=== PATIENT | male | born 1985 | race Caucasian/White ===

== ENCOUNTER 2017-02-12 09:08 | Emergency (ER) | payer SELFPAY ==
[~2017-02-12] VITALS: Ht 185.4 cm; Wt 108.9 kg
[~2017-02-12 09:08] MED LIST: ALBU8.5H4 IH; ALBU8.5H4 PO; AMOX500C2 PO; AZIT250T PO; BENZ100C18 PO; BUDE6HFA IH; CEFU500T5 PO; CIPR-225 PO; CYCL10TA9 PO; DICY10CA26 PO; FAMO20TA5 PO; HCTZ12.5T PO; HYDR-700 PO; KETO75CA PO; LACT1CAP62 PO; META800T5 PO; MULT-963 PO; NAPR-243 PO; NAPR500T PO; NFPRILOC40 PO; OMEP20TA2 PO; PHEN-640 PO; PNT40TEC PO; PRD20T PO; PRED10TA PO; QUET50TA; RT-ALBUINH IH; SULF1TAB38 PO; TRAZ150T60 PO; TRM50T PO; VARE0.5T PO; bp med
--- OUTSIDE RECORDS SUMMARY | 2017-02-12 09:20 | XMS REPORT ---
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
--- OUTSIDE RECORDS SUMMARY | 2017-02-12 09:20 | XMS REPORT ---
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
--- OUTSIDE RECORDS SUMMARY | 2017-02-12 09:20 | XMS REPORT ---
Author Author CAREN ZARAGOZA [facility] Address [address] [place] [address] Care Team Providers Care Software Client Architect Name Role Phone CAREN ZARAGOZA Unavailable PROBLEMS Type Condition ICD9-CM Code YTM34-OS Code Onset Dates Condition Status SNOMED Code Problem Intractable migraine without aura and without status migrainosus G43.019 Active 989139188 Problem Essential hypertension I10 Active 54133927 Problem Microscopic hematuria R31.29 Active 761212344 ALLERGIES Substance Reaction Event Type Date Status Hydrocodone Failed UDS (pos for THC and opiates) Non Drug Allergy May, Active Benzodiazepines Failed UDS (pos for THC and opiates) Non Drug Allergy May Active SOCIAL HISTORY No smoking Hx information available PLAN OF CARE Activity Details Follow Up prn Reason: VITAL SIGNS Height 72 in 2016-06-08 Weight 258.8 lbs 2016-06-08 Temperature 97.6 degrees Fahrenheit 2016-06-08 Heart Rate 94 bpm 2016-06-08 Respiratory Rate 18 2016-06-08 BMI 35.10 kg/m2 2016-06-08 Blood pressure systolic 142 mmHg 2016-06-08 Blood pressure diastolic 90 mmHg 2016-06-08 MEDICATIONS Medication Instructions Dosage Frequency Start Date End Date Duration Status PredniSONE 20 mg Orally Once a day in the morning with food 1 tablet May, May, 05 days Active RESULTS No Results PROCEDURES Procedure Date Ordered Related Diagnosis Body Site Office Visit, Est Pt., Level 3 Jun 08, 2016 IMMUNIZATIONS No Known Immunizations
--- OUTSIDE RECORDS SUMMARY | 2017-02-12 09:20 | XMS REPORT ---
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 [address]-05 500 MG Orally Twice a day 1 tablet Procedures Procedure Coding System Code Date C-REACTIVE PROTEIN CPT-4 47328 May 03, 2016 Office Visit, Est Pt., Level 4 CPT-4 09760 May 03, 2016 COMPLETE CBC W/AUTO DIFF WBC CPT-4 17718 May 03, 2016 VENIPUNCT, ROUTINE* CPT-4 51721 May 03, 2016 Vital Signs Date/Time: May 03, 2016 Cardiac Monitoring Heart Rate 96 bpm Weight 263 lbs Height 72 in BMI 35.67 Index Blood Pressure Diastolic 70 mmHg Blood Pressure Systolic 150 mmHg Results Name Result Date Reference Range Unit Abnormality Flag ROUTINE VENIPUNCTURE CBC ----Neutrophils (Absolute) 8.2 [id number] 1.4-7.0 x10E3/uL H ----Basos 1 25290361 % ----Monocytes(Absolute) 0.7 [id number] 0.1-0.9 x10E3/uL ----Lymphs (Absolute) 2.0 [id number] 0.7-3.1 x10E3/uL ----Platelets 236 [id number] 150-379 x10E3/uL ----Baso (Absolute) 0.1 [id number] 0.0-0.2 x10E3/uL ----RDW 13.5 [id number] 12.3-15.4 % ----Eos (Absolute) 0.1 [id number] 0.0-0.4 x10E3/uL ----MCHC 34.6 [id number] 31.5-35.7 g/dL ----MCH 29.9 [id number] 26.6-33.0 pg ----MCV 87 24215497 79-97 fL ----Lymphs 18 50082623 % ----Neutrophils 74 74380953 % ----Eos 1 14155445 % ----Monocytes 6 24464351 % ----Immature Granulocytes 0 54322568 % ----Immature Grans (Abs) 0.0 [id number] 0.0-0.1 x10E3/uL ----WBC 11.1 [id number] 3.4-10.8 x10E3/uL H ----RBC 5.91 [id number] 4.14-5.80 x10E6/uL H ----Hemoglobin 17.7 [id number] 12.6-17.7 g/dL ----Hematocrit 51.1 [id number] 37.5-51.0 % H CRP ----C-Reactive Protein, Quant 3.5 [id number] 0.0-4.9 mg/L Summary Purpose eClinicalWorks Submission
--- OUTSIDE RECORDS SUMMARY | 2017-02-12 09:20 | XMS REPORT ---
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 Medications Medication Code System Code Instructions Start Date End Date Status Dosage Bactrim DS [facility] [address]-43 800-160 MG Orally Twice a day Feb 06, 2016 Feb 09, 2016 1 tablet Procedures Procedure Coding System Code Date Office Visit, Est Pt., Level 3 CPT-4 62068 Feb 06, 2016 URINALYSIS, AUTO, W/O SCOPE CPT-4 92588 Feb 06, 2016 Vital Signs Date/Time: Feb 06, 2016 Cardiac Monitoring Heart Rate 78 bpm Weight 270.6 lbs Height 72 in BMI 36.70 Index Blood Pressure Diastolic 92 mmHg Blood Pressure Systolic 134 mmHg Results No Known Results Summary Purpose eClinicalWorks Submission
--- OUTSIDE RECORDS SUMMARY | 2017-02-12 09:21 | XMS REPORT ---
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
--- NOTE | 2017-02-12 10:49 | Diagnostic Imaging Report ---
PROCEDURE: CT head and CT cervical spine without contrast. TECHNIQUE: Multiple contiguous axial images were obtained through the brain and cervical spine without the use of intravenous contrast. Sagittal and coronal reformations through the cervical spine were then performed. INDICATION: Hypertension, headache, neck pain. COMPARISON: 12/02/2012. CT HEAD: Ventricles are normal in size, shape and position. There is no midline shift or mass effect. There is no hemorrhage or evidence of acute ischemia. No cerebral edema identified. The bony calvarium, visualized paranasal sinuses and mastoids are normal. IMPRESSION: Negative CT head. CT CERVICAL SPINE: Alignment is normal. There is no subluxation or fracture. No osseous lesion or significant degeneration seen. Soft tissue structures are unremarkable. IMPRESSION: Negative CT of the cervical spine. Dictated by: Dictated on workstation # [id number]
--- NOTE | 2017-02-12 10:52 | ED Headache ---
General Chief Complaint: Head/Cervical Problems Stated Complaint: STIFF NECK/HEADACHE Nursing Triage Note: c/o headache/neck discomfort x 11 days. Denies fever/chills/fatigue/injury. Hx of hypertension but is not currently on meds. Nursing Sepsis Screen: No Definite Risk Source: patient History of Present Illness Time seen by provider: 10:00 Initial Comments C/O POSTERIOR HEADACHE AND POSTERIOR NECK PAIN--WORSE ON RIGHT--FOR 11 DAYS NO FEVER OR RECENT ILLNESS NO VISION CHANGES NO NAUSEA/VOMITING NO DIZZINESS NO PARESTHESIAS OR MOTOR DEFICITS HAS NOT TAKEN ANYTHING FOR PAIN TODAY, BUT HAS TAKEN TYLENOL, MOTRIN AND HYDROCODONE ( GIRLFRIEND'S RX) AT TIMES OVER THE LAST 11 DAYS, WITHOUT RELIEF NOTHING WORSENS OR IMPROVES HEADACHE. PT STATES HE WAS DX WITH HTN " A COUPLE OF YEARS AGO" AND WAS STARTED ON METOPROLOL, BUT PT SELF DC'D IT AFTER 3 DAYS, BECAUSE HE STATES IT MADE IT FEEL LIKE HE HAD FLUTTERING IN HIS CHEST AND HE FELT LIGHTHEADED--NEVER FOLLOWED UP WITH AFTER THAT AT ANY TIME PCP: DR. SIFUENTES AT [facility] Allergies and Home Medications Allergies Coded Allergies: NKANo Known Allergies (Unverified Allergy, Mild, 10/19/09) Home Medications Albuterol Sulfate 8.5 Gm Hfa.aer.ad, 1-2 PUFF IH Q4H PRN for WHEEZING, #1 Prescribed by: TOMASZ MORTON on 02/19/16 1235 Ciprofloxacin HCl 500 Mg Tablet, 500 MG PO BID, #20 Prescribed by: LÁZARO JOHNSTON on 04/28/16 2018 Phenazopyridine HCl 200 Mg Tablet, 1 TAB PO TID PRN for PAIN, #20 Prescribed by: LÁZARO JOHNSTON on 04/28/16 2019 Constitutional: no symptoms reported Eyes: No Symptoms Reported Ears, Nose, Mouth, Throat: no symptoms reported Respiratory: no symptoms reported Cardiovascular: no symptoms reported Gastrointestinal: no symptoms reported Genitourinary: no symptoms reported Musculoskeletal: see HPI, muscle pain, neck pain Skin: no symptoms reported Psychiatric/Neurological: See HPI, Headache, Denies Numbness, Denies Paresthesia, Denies Seizure, Denies Tingling, Denies Tremors, Denies Weakness Past Whgatlc-Iuveho-Phwnxt Hx Patient Social History Alcohol Use: Occasionally Uses Recreational Drug Use: Yes (THC) Drug of Choice: marijuana (occasional) Smoking Status: Current Everyday Smoker (1 PPD) Type Used: Cigarettes Recent Foreign Travel: No Contact w/Someone Who Travel: No Recent Infectious Disease Expo: No Recent Hopitalizations: No Immunizations Up To Date Tetanus Booster (TDap): Less than 5yrs Seasonal Allergies Seasonal Allergies: No Surgeries HX Surgeries: Yes (removal of "birthmarks"; HERNIA REPAIR) Surgeries: Abdominal, Appendectomy Respiratory Hx Respiratory Disorders: No Cardiovascular Hx Cardiac Disorders: Yes Cardiac Disorders: Hypertension Neurological Hx Neurological Disorders: No Reproductive System Hx Reproductive Disorders: No Genitourinary Hx Genitourinary Disorders: Yes (renal cysts, chronic hematuria) Gastrointestinal Hx Gastrointestinal Disorders: Yes Gastrointestinal Disorders: Abdominal Hernia, Liver Disease/Jaundice Musculoskeletal Hx Musculoskeletal Disorders: No Endocrine Hx Endocrine Disorders: No HEENT HX ENT Disorders: No Cancer Hx Cancer: No Psychosocial Hx Psychiatric Problems: Yes Behavioral Health Disorders: Anxiety Integumentary HX Skin/Integumentary Disorder: No Blood Transfusions Hx Blood Disorders: No Adverse Reaction to a Blood Tr: No Family Medical History Significant Family History: Heart Disease, DVT/PE, Diabetes, Hypertension Family Medial History: Patient reports no known family medical history. Physical Exam Vital Signs Vital Sign - Last 12Hours 02/12/17 09:54 Temp 98.0 Pulse 90 Resp 16 B/P (MAP) 168/111 Pulse Ox 98 O2 Delivery Room Air Capillary Refill : Less Than 3 Seconds General Appearance: WD/WN HEENT: PERRL/EOMI, normal ENT inspection, TMs normal, pharynx normal Neck: non-tender, full range of motion, supple, tender lateral (TENDERNESS AND MILD MUSCLE SPASMS TO CERVICAL PARAVERTEBRAL MUSCLES--RIGHT > LEFT--PALPATION REPRODUCES PAIN ) Cardiovascular: normal peripheral pulses, regular rate, rhythm, no murmur Respiratory: normal breath sounds, no respiratory distress, no accessory muscle use Gastrointestinal: non tender, soft Back: normal inspection, no CVA tenderness, no vertebral tenderness Extremities: normal range of motion, non-tender, normal inspection, no pedal edema, no calf tenderness, normal capillary refill Psychiatric: alert, oriented x 3 Crainal Nerves: normal hearing, normal speech, PERRL Coordination/Gait: normal gait Motor/Sensory: no motor deficit, no sensory deficit, no pronator drift Reflexes: 2+ Bicep (R), 2+ Bicep (L), 2+ Knee (R), 2+ Knee (L) Skin: normal color, warm/dry Progress/Results/Core Measures Results/Orders My Orders Orders - KYLE BERGER DO Ct Head/Cervical Spine Wo (02/12/17 10:22) Ketorolac Injection (Toradol Injection) (02/12/17 11:00) Medications Given in ED Current Medications Medications Dose Ordered Sig/Regla Route Start Time Stop Time Status Last Admin Dose Admin Ketorolac Tromethamine 60 mg ONCE ONCE IM 02/12/17 11:00 02/12/17 11:01 DC 02/12/17 11:15 60 MG Vital Signs/I&O Vital Sign - Last 12Hours 02/12/17 02/12/17 02/12/17 09:54 11:15 11:25 Temp 98.0 98.0 98.0 Pulse 90 94 Resp 16 16 B/P (MAP) 168/111 Pulse Ox 98 98 O2 Delivery Room Air Blood Pressure Mean: 130 Progress Note : Progress Note BP DOWN TO 148/98 WITHOUT TREATMENT, AND PT STATES HEADACHE IS BETTER--PRIOR TO TORADOL SHOT HEADACHE MUCH IMPROVED AT DISMISSAL Diagnostic Imaging Comments CT HEAD/CERVICAL SPINE--NO ACUTE PROCESS, PER RADIOLOGIST REPORTS @ 1052 Reviewed: Reviewed by Me Departure Impression Impression: Primary Impression: HTN (hypertension) Additional Impression: Tension headache Disposition: HOME, SELF-CARE Condition: Improved Departure-Patient Inst. [facility] Instructions: DASH Diet, Heart Healthy Diet, High Blood Pressure (DC), Tension Headache (DC) Add. Discharge Instructions: NO SMOKING, DRUGS OR ALCOHOL LOW SODIUM/ HEART HEALTHY DIET TYLENOL 1 GRAM / MOTRIN 800 MG 4 TIMES A DAY NEEDED FOR PAIN FOLLOW UP WITH [facility] THIS WEEK FOR FURTHER CARE--CALL TODAY FOR FOLLOW UP APPOINTMENT All discharge instructions reviewed with patient and/or family. Voiced understanding. KYLE BERGER DO Feb 12, 2017 10:52
[2017-02-12] MEDS ORDERED: KETOROLAC 60 MG/2 ML VIAL IM ONE (11:00)
[2017-02-12 11:25] VITALS: BP 145/96
== END 2017-02-12 11:25 | disposition home or self-care (01) ==
LOC: EDUNIT# 09:08 → ER 09:10
DX: G44.209 Tension-type headache, unspecified, not intractable (principal); I10 Essential (primary) hypertension; F41.9 Anxiety disorder, unspecified; F12.90 Cannabis use, unspecified, uncomplicated; F17.210 Nicotine dependence, cigarettes, uncomplicated; Z98.890 Other specified postprocedural states; Z90.49 Acquired absence of other specified parts of digestive tract; Z87.19 Personal history of other diseases of the digestive system; Z82.49 Family history of ischemic heart disease and other diseases of the circulatory system
CPT/HCPCS: 70450; 72125; 96372; 99284

== ENCOUNTER 2017-11-14 12:27 | Emergency (ER) | payer SELFPAY ==
[~2017-11-14] VITALS: Ht 177.8 cm; Wt 99.8 kg
[~2017-11-14 12:27] MED LIST changes: +NAPR-1071 PO; -NAPR500T PO
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
[2017-11-14] MEDS ORDERED: KETOROLAC 30 MG/ML VIAL IVP STA (12:50)
[2017-11-14] MEDS ORDERED: NS IV 1000 ML 1,000 ML IV ONE (12:50)
[2017-11-14] MEDS ORDERED: raNItidine INJECTION 50 MG in NS (IVPB) 50 ML IV ONE (13:00)
[2017-11-14] MEDS ORDERED: ONDANSETRON 4 MG/2 ML (SDV) Z0FRAN IVP ONE (13:00)
[2017-11-14 13:01] LABS: BASOPHILS # (AUTO) 0.1 10^3/uL (0.0-0.1); BASOPHILS % (AUTO) 1 % (0-10); EOSINOPHILS # (AUTO) 0.2 10^3/uL (0.0-0.3); EOSINOPHILS % (AUTO) 2 % (0-10); HEMATOCRIT 49 % (40-54); HEMOGLOBIN 17.4 G/DL (13.3-17.7); LYMPHOCYTES # (AUTO) 2.5 X 10^3 (1.0-4.0); LYMPHOCYTES % (AUTO) 23 % (12-44); MEAN CORPUSCULAR HEMOGLOBIN 29 PG (25-34); MEAN CORPUSCULAR HGB CONC 35 G/DL (32-36); MEAN CORPUSCULAR VOLUME 84 FL (80-99); MEAN PLATELET VOLUME 11.8 FL (7.4-10.4); MONOCYTES # (AUTO) 0.8 X 10^3 (0.0-1.0); MONOCYTES % (AUTO) 7 % (0-12); NEUTROPHILS # (AUTO) 7.2 X 10^3 (1.8-7.8); NEUTROPHILS % (AUTO) 67 % (42-75); PLATELET COUNT 222 10^3/uL (130-400); RED CELL DISTRIBUTION WIDTH 13.6 % (10.0-14.5); WHITE BLOOD COUNT 10.7 10^3/uL (4.3-11.0)
[2017-11-14] MEDS ORDERED: NS 250 ML (IVPB) BAG IV ONE (13:15)
[2017-11-14] MEDS ORDERED: IOHEXOL 350 MG/ML 150 ML (OMNIPAQUE 350) VIAL IV ONE (13:15)
[2017-11-14 13:19] LABS: ALANINE AMINOTRANSFERASE 55 U/L (0-55); ALBUMIN 4.7 GM/DL (3.2-4.5); ALKALINE PHOSPHATASE 72 U/L (40-136); BILIRUBIN,TOTAL 0.6 MG/DL (0.1-1.0); BUN/CREATININE RATIO 14; CALCIUM 9.8 MG/DL (8.5-10.1); CARBON DIOXIDE 24 MMOL/L (21-32); CHLORIDE 107 MMOL/L (98-107); CREATINE KINASE 97 U/L (30-200); CREATININE SERUM 0.84 MG/DL (0.60-1.30); GFR ESTIMATED > 60; GLUCOSE 102 MG/DL (70-105); MAGNESIUM 1.9 MG/DL (1.8-2.4); POTASSIUM 4.2 MMOL/L (3.6-5.0); SODIUM 141 MMOL/L (135-145); TOTAL PROTEIN 7.5 GM/DL (6.4-8.2)
[2017-11-14 13:34] LABS: BILIRUBIN,URINE NEGATIVE (NEGATIVE); CLARITY,URINE CLEAR; COLOR,URINE YELLOW; GLUCOSE, URINE (UA) NEGATIVE (NEGATIVE); KETONES,URINE NEGATIVE (NEGATIVE); LEUKOCYTE ESTERASE ,URINE NEGATIVE (NEGATIVE); NITRITE,URINE NEGATIVE (NEGATIVE); PH,URINE 7 (5-9); PROTEIN,URINE NEGATIVE (NEGATIVE); UROBILINOGEN,URINE NORMAL (NORMAL)
[2017-11-14 13:43] LABS: MYOGLOBIN SERUM 31.2 NG/ML (10.0-92.0); TSH (THYROID ANALYZER) 0.72 UIU/ML (0.35-4.94)
[2017-11-14 13:47] LABS: AMPHETAMINE SCREEN, URINE NEGATIVE (NEGATIVE); BARBITURATE SCREEN URINE NEGATIVE (NEGATIVE); BENZODIAZEPINES SCREEN URINE NEGATIVE (NEGATIVE); CANNABINOID SCREEN, URINE POSITIVE (NEGATIVE); COCAINE SCREEN URINE NEGATIVE (NEGATIVE); METHADONE STAT NEGATIVE (NEGATIVE); METHAMPHETAMINE SCREEN URINE S NEGATIVE (NEGATIVE); OPIATE SCREEN URINE NEGATIVE (NEGATIVE); OXYCODONE STAT NEGATIVE (NEGATIVE); PROPOXYPHENE STAT NEGATIVE (NEGATIVE); TRICYCLIC ANTIDEPRESSANTS SCRE NEGATIVE (NEGATIVE)
--- NOTE | 2017-11-14 13:48 | Diagnostic Imaging Report ---
PROCEDURE: CT angiography of the chest with contrast. TECHNIQUE: Multiple contiguous axial images were obtained through the chest after uneventful bolus administration of intravenous contrast. Reconstructed CTA MIP acquisitions were also performed. INDICATION: Chest and back pain, lightheadedness. FINDINGS: There are no intraluminal pulmonary arterial filling defects. There is no pulmonary arterial embolus. The thoracic aorta is patent and nonaneurysmal. There is no pleural or pericardial effusion. Early arterial enhancement of a right hepatic dome mass is unchanged measuring 5.2 x 5.1 cm with a low attenuating central scar-like focus remaining most compatible with focal nodular hyperplasia. No new liver mass; however, its caudal right lobe is outside the [id number]. The adrenals negative. The upper abdomen appeared nonacute. IMPRESSION: Negative for PE or other acute chest pathology. 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 Dictated by: Dictated on workstation # [id number]
[2017-11-14 13:49] LABS: AMORPHOUS SEDIMENT,UR RARE AMOR PHOSPHATE /LPF; BACTERIA,URINE NEGATIVE /HPF; SQUAMOUS EPITHELIAL CELL,UR RARE /HPF
--- NOTE | 2017-11-14 13:59 | ED General ---
General Chief Complaint: Chest Pain Stated Complaint: LIGHTHEADED WEAKNESS PAIN IN CHEST/BACK Nursing Triage Note: PT STATES LIGHTHEADED, CHEST PAIN AND WEAKNESS THAT STARTED LAST NIGHT. Nursing Sepsis Screen: No Definite Risk Source of Information: Patient Exam Limitations: No Limitations History of Present Illness Date Seen by Provider: November 14, 2017 Time Seen by Provider: 12:43 Initial Comments 32 yo male patient presents to the ED with c/o feeling lightheaded with SOA and a sharp pain to the anterior central chest beginning last night. States after he felt lightheaded, he felt anxious followed by the chest pain and SOA. Does report a h/o anxiety and panic attacks. Lightheadedness is worse with bending over and standing up quickly. Does feel like he has "cotton mouth", but drinks "a lot of water". Feels overall fatigued and "not well." Does report the pain radiates straight through to the back. Does have some epigastric pain and nausea. Timing/Duration: 12-24 Hours Modifying Factors: worse with Other (worse with standing quickly and bending over.) Allergies and Home Medications Allergies Coded Allergies: NKANo Known Allergies (Unverified Allergy, Mild, 10/19/09) Home Medications Albuterol Sulfate 8.5 Gm Hfa.aer.ad, 1-2 PUFF IH Q4H PRN for WHEEZING Prescribed by: TOMASZ MORTON on 02/19/16 1235 Ciprofloxacin HCl 500 Mg Tablet, 500 MG PO BID Prescribed by: LÁZARO JOHNSTON on 04/28/162017 Phenazopyridine HCl 200 Mg Tablet, 1 TAB PO TID PRN for PAIN Prescribed by: LÁZARO JOHNSTON on 04/28/16 2019 Patient Home Medication List Home Medication List Reviewed: Yes Review of Systems Constitutional: No chills, No diaphoresis, No fever; malaise, other (fatigue.) EENTM: no symptoms reported Respiratory: see HPI; No cough, No dyspnea on exertion, No orthopnea, No phlegm ; short of breath; No wheezing Cardiovascular: see HPI, chest pain; No edema; palpitations; No syncope Gastrointestinal: No abdominal pain, No constipation, No diarrhea, No heartburn , No loss of appetite, No melena; nausea; No vomiting Genitourinary: No discharge, No dysuria, No frequency, No hematuria, No pain; other (dark urine) Musculoskeletal: no symptoms reported Skin: no symptoms reported Psychiatric/Neurological: Anxiety; Denies Headache, Denies Numbness, Denies Paresthesia, Denies Seizure, Denies Tingling, Denies Weakness Hematologic/Lymphatic: No Symptoms Reported All Other Systems Reviewed Negative Unless Noted: Yes (Negative excepted noted.) Past Kcmxbzu-Saafzs-Kqksxa Hx Past Med/Social Hx: Reviewed and Corrections made Patient Social History Alcohol Use: Denies Use Recreational Drug Use: Yes (marijuana) Drug of Choice: marijuana (occasional) Smoking Status: Current Everyday Smoker Type Used: Cigarettes (1 PPD) Recent Foreign Travel: No Contact w/Someone Who Travel: No Recent Infectious Disease Expo: No Recent Hopitalizations: No Immunizations Up To Date Tetanus Booster (TDap): Less than 5yrs Seasonal Allergies Seasonal Allergies: No Past Medical History Surgeries: Yes (removal of "birthmarks") Abdominal (bilateral inguinal hernia repair as a child. tubes bilateral ears.) , Appendectomy Respiratory: No Cardiac: Yes Hypertension Neurological: No Reproductive Disorders: No Gastrointestinal: Yes Abdominal Hernia, Liver Disease/Jaundice Musculoskeletal: No Endocrine: No (FAMILY HX OF) Cancer: No Psychosocial: Yes Anxiety Integumentary: No Blood Disorders: No Adverse Reaction/Blood Tranf: No Family Medical History Reviewed Nursing Family Hx (patient reports to this examiner that he knows his mother in her 30's from a PE and does not know any other family hx due to being in foster care since he was a kid. All other PFH obtained from Past medical records in EMR.) Patient reports no known family medical history. Heart Disease, DVT/PE, Diabetes, Hypertension Physical Exam Vital Signs Vital Signs - First Documented Capillary Refill : Less Than 3 Seconds General Appearance: No Apparent Distress (NAD. Mildly anxious.), WD/WN HEENT: PERRL/EOMI, TMs Normal, Normal ENT Inspection, Pharynx Normal, Other ( dry oral mucosa noted. 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3-11.0 10^3/uL Red Blood Count 5.90 H 4.35-5.85 10^6/uL Hemoglobin 17.4 13.3-17.7 G/DL Hematocrit 49 40-54 % Mean Corpuscular Volume 84 80-99 FL Mean Corpuscular Hemoglobin 29 25-34 PG Mean Corpuscular Hemoglobin Concent 35 32-36 G/DL Red Cell Distribution Width 13.6 10.0-14.5 % Platelet Count 222 130-400 10^3/uL Mean Platelet Volume 11.8 H 7.4-10.4 FL Neutrophils (%) (Auto) 67 42-75 % Lymphocytes (%) (Auto) 23 12-44 % Monocytes (%) (Auto) 7 0-12 % Eosinophils (%) (Auto) 2 0-10 % Basophils (%) (Auto) 1 0-10 % Neutrophils # (Auto) 7.2 1.8-7.8 X 10^3 Lymphocytes # (Auto) 2.5 1.0-4.0 X 10^3 Monocytes # (Auto) 0.8 0.0-1.0 X 10^3 Eosinophils # (Auto) 0.2 0.0-0.3 10^3/uL Basophils # (Auto) 0.1 0.0-0.1 10^3/uL Prothrombin Time 13.0 12.2-14.7 SEC INR Comment 1.0 0.8-1.4 Activated Partial Thromboplast Time 31 24-35 SEC Sodium Level 141 135-145 MMOL/L Potassium Level 4.2 3.6-5.0 MMOL/L Chloride Level 107 98-107 MMOL/L Carbon Dioxide Level 24 21-32 MMOL/L Anion Gap 10 5-14 MMOL/L Blood Urea Nitrogen 12 7-18 MG/DL Creatinine 0.84 0.60-1.30 MG/DL Estimat Glomerular Filtration Rate > 60 BUN/Creatinine Ratio 14 Glucose Level 102 70-105 MG/DL Calcium Level 9.8 8.5-10.1 MG/DL Magnesium Level 1.9 1.8-2.4 MG/DL Total Bilirubin 0.6 0.1-1.0 MG/DL Aspartate Amino Transf (AST/SGOT) 22 5-34 U/L Alanine Aminotransferase (ALT/SGPT) 55 0-55 U/L Alkaline Phosphatase 72 40-136 U/L Total Creatine Kinase 97 30-200 U/L Creatine Kinase MB 1.0 <6.6 NG/ML Myoglobin 31.2 10.0-92.0 NG/ML Troponin I < 0.30 <0.30 NG/ML C-Reactive Protein High Sensitivity 0.43 0.00-0.50 MG/DL Total Protein 7.5 6.4-8.2 GM/DL Albumin 4.7 H 3.2-4.5 GM/DL TSH [place] Testing 0.72 0.35-4.94 UIU/ML Urine Color YELLOW Urine Clarity CLEAR Urine pH 7 5-9 Urine Specific [place] 1.010 L 1.016-1.022 Urine Protein NEGATIVE NEGATIVE Urine Glucose (UA) NEGATIVE NEGATIVE Urine Ketones NEGATIVE NEGATIVE Urine Nitrite NEGATIVE NEGATIVE Urine Bilirubin NEGATIVE NEGATIVE Urine Urobilinogen NORMAL NORMAL MG/DL Urine Leukocyte Esterase NEGATIVE NEGATIVE Urine RBC (Auto) 1+ H NEGATIVE Urine RBC 2-5 H /HPF Urine WBC NONE /HPF Urine Squamous Epithelial Cells RARE /HPF Urine Crystals PRESENT H /LPF Urine Amorphous Sediment RARE GUI PHOSPHATE H /LPF Urine Bacteria NEGATIVE /HPF Urine Casts NONE /LPF Urine Mucus NEGATIVE /LPF Urine Culture Indicated NO Urine Opiates Screen NEGATIVE NEGATIVE Urine Oxycodone Screen NEGATIVE NEGATIVE Urine Methadone Screen NEGATIVE NEGATIVE Urine Propoxyphene Screen NEGATIVE NEGATIVE Urine Barbiturates Screen NEGATIVE NEGATIVE Ur Tricyclic Antidepressants Screen NEGATIVE NEGATIVE Urine Phencyclidine Screen NEGATIVE NEGATIVE Urine Amphetamines Screen NEGATIVE NEGATIVE Urine Methamphetamines Screen NEGATIVE NEGATIVE Urine Benzodiazepines Screen NEGATIVE NEGATIVE Urine Cocaine Screen NEGATIVE NEGATIVE Urine Cannabinoids Screen POSITIVE H NEGATIVE My Orders Orders - VIVI CARTER Saline Lock/Iv-Start (11/14/17 12:50) Ekg Tracing (11/14/17 12:50) Monitor-Rhythm Ecg Trace Only (11/14/17 12:50) Ct Angio Chest W (11/14/17 12:50) Cbc With Automated Diff (11/14/17 12:50) Comprehensive Metabolic Panel (11/14/17 12:50) Creatine Kinase (11/14/17 12:50) Creatine Kinase Mb (11/14/17 12:50) Hs C Reactive Protein (11/14/17 12:50) Drug Screen Stat (Urine) (11/14/17 12:50) Magnesium (11/14/17 12:50) Protime With Inr (11/14/17 12:50) Partial Thromboplastin Time (11/14/17 12:50) Thyroid Analyzer (11/14/17 12:50) Troponin I (11/14/17 12:50) Ua Culture If Indicated (11/14/17 12:50) Myoglobin Serum (11/14/17 12:50) Ns Iv 1000 Ml (Sodium Chloride 0.9%) (11/14/17 12:50) Ranitidine Injection (Zantac Injection) (11/14/17 13:00) Ondansetron Injection (Zofran Injectio (11/14/17 13:00) Ketorolac Injection (Toradol Injection) (11/14/17 12:50) Iohexol Injection (Omnipaque 350 Mg/Ml 1 (11/14/17 13:15) Ns (Ivpb) (Sodium Chloride 0.9%) (11/14/17 13:15) Medications Given in ED Current Medications Medications Dose Ordered Sig/Regla Route Start Time Stop Time Status Last Admin Dose Admin Iohexol 125 ml ONCE ONCE IV 11/14/17 13:15 11/14/17 13:16 DC 11/14/17 13:13 125 ML Ondansetron HCl 4 mg ONCE ONCE IVP 11/14/17 13:00 11/14/17 13:01 DC 11/14/17 13:21 4 MG Ranitidine HCl 50 mg/Sodium Chloride 52 ml @ 100 mls/hr ONCE ONCE IV 11/14/17 13:00 11/14/17 13:31 DC 11/14/17 13:22 100 MLS/HR Sodium Chloride 250 ml ONCE ONCE IV 11/14/17 13:15 11/14/17 13:16 DC 11/14/17 13:14 80 ML Sodium Chloride 1,000 ml @ 0 mls/hr Q0M ONCE IV 11/14/17 12:50 11/14/17 12:55 DC 11/14/17 13:22 1,000 MLS/HR Vital Signs/I&O 11/14/17 11/14/17 12:40 12:40 Temp 97.5 Pulse 91 Resp 20 B/P (MAP) 160/91 (114) Pulse Ox 98 O2 Delivery Room Air Room Air Capillary Refill : Less Than 3 Seconds Blood Pressure Mean: 114 ECG Initial ECG Impression Date: November 14, 2017 Initial ECG Rhythm: S.Tach Comment Sinus tachycardia without STEMI. ECG reviewed with Dr. Machado. Diagnostic Imaging Diagonstic Imaging: CT Plain Films/CT/US/NM/MRI: chest (angio chest) Comments CT ANGIO CHEST W PROCEDURE: CT angiography of the chest with contrast. TECHNIQUE : Multiple contiguous axial images were obtained through the chest after uneventful bolus administration of intravenous contrast. Reconstructed CTA MIP acquisitions were also performed. INDICATION: Chest and back pain, lightheadedness. FINDINGS: There are no intraluminal pulmonary arterial filling defects. There is no pulmonary arterial embolus. The thoracic aorta is patent and nonaneurysmal. There is no pleural or pericardial effusion. Early arterial enhancement of a right hepatic dome mass is unchanged measuring 5.2 x 5.1 cm with a low attenuating central scar-like focus remaining most compatible with focal nodular hyperplasia. No new liver mass; however, its caudal right lobe is outside the [id number]. The adrenals negative. The upper abdomen appeared nonacute. IMPRESSION: Negative for PE or other acute chest pathology. 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 Dictated on workstation # [id number] Reviewed: Reviewed by Me (radiology report reviewed by me) Departure Communication (Admissions) All laboratory and diagnostic findings discussed with the patient. Patient reports feeling "100 percent better" after being given fluids, Zantac, and Zofran. Impression Primary Impression: Volume depletion Additional Impression: Gastritis Disposition: HOME, SELF-CARE Condition: Improved Departure-Patient Inst. Decision time for Depature: 13:55 Referrals: [facility] (PCP/Family) Primary Care Physician Patient Instructions: Dehydration, Adult (DC), Ulcer and Gastritis Diet Add. Discharge Instructions: All discharge instructions reviewed with patient and/or family. Voiced understanding. Medications as instructed. Tylenol Extra Strength over-the- counter as directed for pain or headache if needed. Avoid NSAIDs such as ibuprofen or Aleve. Avoid smoking, secondhand smoke, marijuana use, caffeine, carbonated beverages, spicy foods, fatty foods. Do not eat within 2 hours of lying down. Drink plenty of fluids. Alternate water with Powerade, Gatorade, or vitamin water. Avoid the heat for 2-3 days. Follow-up with Dr. Downs for recheck, call for an appointment time. Return to the emergency department for worsened symptoms, chest pain, shortness of air, dizziness, changes in vision, slurred speech, changes in behavior, seizure, or any other concerns. Scripts Famotidine (Pepcid) 20 Mg Tablet 20 MG PO BID, #30 TAB 0 Refills Prov: VIVI CARTER 11/14/17 Work/School Note: Work Release Form Date Seen in the Emergency Department: November 14, 2017 Return to Work: November 16, 2017 VIVI CARTER November 14, 2017 13:59
[2017-11-14] MEDS ORDERED: FAMO-119 PO (14:47)
[2017-11-14 14:52] VITALS: BP 123/79
== END 2017-11-14 14:49 | disposition home or self-care (01) ==
LOC: EDUNIT# 12:27 → ER 12:29
DX: E86.9 Volume depletion, unspecified (principal); K29.70 Gastritis, unspecified, without bleeding; F41.9 Anxiety disorder, unspecified; I10 Essential (primary) hypertension; F12.90 Cannabis use, unspecified, uncomplicated; F17.210 Nicotine dependence, cigarettes, uncomplicated; Z87.19 Personal history of other diseases of the digestive system; Z90.49 Acquired absence of other specified parts of digestive tract
CPT/HCPCS: 36415; 71275; 80053; 80306; 81000; 82550; 82553; 83735; 83874; 84443; 84484; 85025; 85610; 85730; 86141; 93005; 93041; 96361; 96365; 96375

== ENCOUNTER 2018-01-12 16:07 | Emergency (ER) | payer SELFPAY ==
[~2018-01-12] VITALS: Ht 182.9 cm; Wt 127.0 kg
[~2018-01-12 16:07] MED LIST changes: +FAMO-119 PO
--- OUTSIDE RECORDS SUMMARY | 2018-01-12 16:15 | XMS REPORT ---
Author Author DANN FLANAGAN Organization [facility] Address [address] [place] [address] Care Team Providers Care Molder [employer]ets Name Role Phone MASHA DANN Unavailable PROBLEMS Type Condition ICD9-CM Code QKC33-MN Code Onset Dates Condition Status SNOMED Code Problem Irritable bowel syndrome without diarrhea K58.9 Active 85644394 Problem Liver mass R16.0 Active 977540586 Problem Microscopic hematuria R31.29 Active 706026967 Problem Labile hypertension I10 Active 054961097 Problem Intractable migraine without aura and without status migrainosus G43.019 Active 655146924 ALLERGIES Substance Reaction Event Type Date Status Hydrocodone Failed UDS (pos for THC and opiates) Non Drug Allergy Aug, Active Benzodiazepines Failed UDS (pos for THC and opiates) Non Drug Allergy Aug Active ENCOUNTERS Encounter Location Date Diagnosis [place] [address] [address] October, Irritable bowel syndrome without diarrhea K58.9 and Plantar fasciitis of right foot M72.2 [place] [address] [place] [id number] [place] [address] Aug, [facility] [address] [place] [id number] [place] [address] Aug, Sore throat J02.9 and Viral pharyngitis J02.9 [place] [address] [address] Aug, Tonsillitis J03.90 [place] [address] [address] Jun, Influenza B J10.1 ; Fever and chills R50.9 and Liver mass R16.0 [place] [address] [place] [id number] [place] [address] May, Bilateral low back pain without sciatica, unspecified chronicity M54.5 and Labile hypertension I10 [facility] [address] [id number] 10 Apr, 2017 Dental examination Z01.20 [place] [address] [address] Sep, Sore throat J02.9 [place] [address] [address] Jun, Intractable migraine without aura and without status migrainosus G43.019 and Essential hypertension I10 [place] [address] [address] May, Acute upper respiratory infection, unspecified J06.9 [place] [address] [address] Apr, Microscopic hematuria R31.29 [place] [address] [address] 08 Apr, 2016 Pelvic pain R10.2 [place] [address] [address] 04 Apr, 2016 [facility] [address] [address] Jan, Urinary frequency R35.0 [place] [address] [address] 14 Sep, 2015 Liver mass R16.0 [place] [address] [address] 06 Sep, 2015 IV infiltration, initial encounter T80.1XXA [place] [address] [address] 04 Sep, 2015 Liver lesion K76.9 and Back pain M54.9 [facility] [id number] [place] [address] 02 Aug, 2015 Testicular pain N50.8 and Epididymal pain N50.8 [facility] [address] [facility] [id number] [place] [address] 14 Sep, 2014 [facility] [id number] [place] [address] 13 Sep, 2014 [facility] [address] [facility] [id number] [place] [address] 6898 17 Nov, 2013 [facility] [address] [facility] [id number] [place] [address] 7[address] 17 Nov, 2013 [facility] [address] [facility] [id number] [place] [address]65[address] 2735 Nov, [facility] [id number] [place] [address] Nov, [facility] [address] [address] Nov, [facility] [address] [address] Nov, [facility] [address] [address] Nov, [facility] [address] [address] 7[address] Nov, [facility] [address] [address] 0[address] Nov, [facility] [address] [facility] [id number] [address] Nov, [facility] [address] [facility] [id number] [place] [address] Nov, [facility] [address] [place] [id number] [address] 06 Nov, 2013 [facility] [address] [address] Nov, [facility] [address] [id number] [place] [address] 97[address] Nov, [facility] [place] [facility] [address] [id number] [place] [address] 52[address] Nov, [facility] [place] [facility] [address] [id number] [place] [address] 3[address] Sep, [facility] [place] [facility] [address] [id number] [place] [address]- 9637 Sep, [facility] [place] [facility] [address] [id number] [place] [address] 3119 Sep, [facility] [place] [facility] [address] [id number] [place] [address]- 3604 Sep, [facility] [address] [id number] [place] [address]- 0009 Sep, [facility] [place] [facility] [address] [id number] [place] [address]- 5773 May, [facility] [place] [facility] [address] [id number] [place] [address]- 6986 May, [facility] [place] [facility] [address] [facility] [id number] [place] [address]- 4938 May, [facility] [place] [facility] [address] [id number] [place] [address]- 8408 May, [facility] [place] [facility] [address] [id number] [place] [address]- 8[address] Apr, [facility] [place] [facility] [address] [id number] [place] [address]- 5311 Apr, [facility] [place] [facility] [address] [id number] [place] [address]- 2704 Apr, [facility] [place] [facility] [address] [id number] [place] [address]- 7510 Apr, [facility] [place] [facility] [address] [id number] [place] [address]- 9947 Mar, [facility] [place] [facility] [address] [id number] [place] [address]- 0173 Mar, [facility] [place] [facility] [address] [id number] [place] [address]- 4165 Mar, [facility] [place] [facility] [address] [id number] [place] [address]- 1051 Mar, [facility] [place] [facility] [address] [id number] [place] [address]- 9449 Jan, [facility] [place] [facility] [address] [id number] [place] [address]- 4952 Jan, [facility] [place] [facility] [address] [id number] [place] [address]- 2532 Dec, [facility] [place] [facility] [address] [id number] [place] [address]- 5868 Dec, [facility] [place] [facility] [address] [id number] [place] [address]- 7138 Dec, [facility] [place] [facility] [address] [id number] [place] [address]- 6399 Dec, [facility] [place] [facility] [address] [id number] [place] [address]- 0422 Dec, [facility] [place] [facility] [address] [id number] [place] [address]- 6028 Dec, [facility] [place] [facility] [address] [id number] [place] [address]- 8418 Nov, [facility] [place] [facility] [address] [id number] [place] [address] Nov, [facility] [place] [facility] [address] [id number] [place] [address]- 9055 Feb, [facility] [place] [facility] [address] [id number] [place] [address]- 8615 Jul, [facility] [place] [address] [facility] [id number] [place] [address] 1566 Jul, [facility] [place] [address] [place] [id number] [address]- 4[address] Jun, [facility] [place] [address]65[address] [address] Jun, [facility] [place] [address]65[address] [address]- 2505 Apr, [facility] [place] [address] [address]- 7427 Apr, [facility] [place] [address]65100[place] [address]- 9856 Apr, [facility] [place] [address]65[address] [address]- 1166 Mar, [facility] [place] [address] [place] [id number] [address]- 1657 Mar, IMMUNIZATIONS No Known Immunizations SOCIAL HISTORY Never Assessed REASON FOR VISIT sore throat started this [facility] Activity Details Follow Up prn Reason: VITAL SIGNS Height 72 in 2017-09-07 Weight 280.2 lbs 2017-09-07 Temperature 97.5 degrees Fahrenheit 2017-09-07 Heart Rate 60 bpm 2017-09-07 Respiratory Rate 20 2017-09-07 BMI 38.00 kg/m2 2017-09-07 Blood pressure systolic 130 mmHg 2017-09-07 Blood pressure diastolic 74 mmHg 2017-09-07 MEDICATIONS Medication Instructions Dosage Frequency Start Date End Date Duration Status Promethazine-Codeine 6.25-10 MG/5ML Orally every 4 hrs 1-2 tsp as needed 4h Jun, Not-Taking Ibuprofen 400 MG Orally Three times a day 1 tablet 8h Active RESULTS No Results PROCEDURES Procedure Date Ordered Result Body Site STREP A ASSAY W/OPTIC September 07, 2017 CULTURE, BACTERIA, OTHER September 07, 2017 INSTRUCTIONS MEDICATIONS ADMINISTERED No Known Medications MEDICAL (GENERAL) HISTORY Type Description Date Medical History Hypertension Medical History IBS Medical History Lactose Intolerant Surgical History Tubes in Ears Surgical History Testicular Hernias x2 Surgical History Appendectomy Surgical History Juan Removal Hospitalization History surgeries Hospitalization [facility] 04/28/16
--- OUTSIDE RECORDS SUMMARY | 2018-01-12 16:15 | XMS REPORT ---
Author Author MICHAEL SIFUENTES Organization [facility] Address [address] [place] [address] Care Team Providers Care Security Consultant Name Role Phone MICHAEL SIFUENTES Unavailable PROBLEMS Type Condition ICD9-CM Code TJB92-OU Code Onset Dates Condition Status SNOMED Code Problem Irritable bowel syndrome without diarrhea K58.9 Active 78959559 Problem Liver mass R16.0 Active 000926863 Problem Microscopic hematuria R31.29 Active 214896576 Problem Labile hypertension I10 Active 936077341 Problem Intractable migraine without aura and without status migrainosus G43.019 Active 091199711 ALLERGIES Substance Reaction Event Type Date Status Hydrocodone Failed UDS (pos for THC and opiates) Non Drug Allergy Aug, Active Benzodiazepines Failed UDS (pos for THC and opiates) Non Drug Allergy Aug Active ENCOUNTERS Encounter Location Date Diagnosis [place] [id number] [address] October, Irritable bowel syndrome without diarrhea K58.9 and Plantar fasciitis of right foot M72.2 [place] [address] [address] Aug, [facility] [address] [place] [id number] [place] [address] Aug, Sore throat J02.9 and Viral pharyngitis J02.9 [place] [address] [address]- [address]887 Aug, Tonsillitis J03.90 [place] [address] [address] Jun, Influenza B J10.1 ; Fever and chills R50.9 and Liver mass R16.0 [facility] [address] [place] [id number] [place] [address]- 6361 May, Bilateral low back pain without sciatica, unspecified chronicity M54.5 and Labile hypertension I10 [facility] [address] [place] [id number] [place] [id number] 10 Apr, 2017 Dental examination Z01.20 [place] [address] [address] Sep, Sore throat J02.9 [place] [address] [address]- 3046 Jun, Intractable migraine without aura and without status migrainosus G43.019 and Essential hypertension I10 [place] [address] [address]- 6996 14 May, 2016 Acute upper respiratory infection, unspecified J06.9 [place] [address] [address]- 7084 Apr, Microscopic hematuria R31.29 [place] [address] [address]- 7956 08 Apr, 2016 Pelvic pain R10.2 [place] [address] [address]- 6697 04 Apr, 2016 [facility] [address] [place] [id number] [place] [address] Jan, Urinary frequency R35.0 [place] [address] [address]- 7381 14 Sep, 2015 Liver mass R16.0 [place] [address] [address]- 7871 06 Sep, 2015 IV infiltration, initial encounter T80.1XXA [place] [address] [address]- 0839 04 Sep, 2015 Liver lesion K76.9 and Back pain M54.9 [facility] [address] [place] [id number] [address] 02 Aug, 2015 Testicular pain N50.8 and Epididymal pain N50.8 [facility] [address], [place] [address]- [address] 14 Sep, 2014 [facility] [address] [facility] [id number], [place] [address]- 3[address] 13 Sep, 2014 [facility] [address] [facility] [facility] [id number] [place] [address] 795[address]- 4626 17 Nov, 2013 [facility] [address] [facility] [facility] [id number], [place] [address]- 4591 17 Nov, 2013 [facility] [id number] [place] [address]03- 6210 Nov, [facility] [id number] [place] [address] 00828- 2245 Nov, [facility] [id number] [place] [address] 13469- 9732 Nov, [facility] [address] [address]- 0503 Nov, [facility] [address] [address]- 9296 Nov, [facility] [address], [place] [address]- 1035 Nov, [facility] [address] [address]- 7032 10 Nov, 2013 [facility] [place] [facility] [address] [facility] [facility] [id number], [place] [address]- 3717 Nov, [facility] [place] [facility] [address] [facility] [facility] [id number][place] [address]- 2015 09 Nov, 2013 [facility] [place] [facility] [address] [place] [id number] [address]- 8[address] 06 Nov, 2013 [facility] [place] [facility] [address], [place] [address]- 8978 Nov, [facility] [place] [facility] [address] [id number] [place] [address]- 2227 Nov, [facility] [place] [facility] [address] [id number] [place] [address]- 8823 Nov, [facility] [place] [facility] [address] [facility] [facility] [id number] [place] [address]- 7019 Sep, [facility] [place] [facility] [address] [id number] [place] [address]- 9205 Sep, [facility] [place] [facility] [address] [id number] [place] [address]- 5427 Sep, [facility] [place] [facility] [address] [id number] [place] [address]- 7543 Sep, [facility] [place] [facility] [address] [facility] [id number] [place] [address]- 8683 Sep, [facility] [place] [facility] [address] [id number] [place] [address]- 2601 May, [facility] [place] [facility] [address] [facility] [facility] [id number] [place] [address]- 9830 May, [facility] [place] [facility] [address] [facility] [facility] [id number] [place] [address]- 3060 May, [facility] [place] [facility] [address] [facility] [facility] [id number] [address]- 4462 May, [facility] [place] [facility] [address] [id number], [place] [address]- 8053 Apr, [facility] [place] [facility] [address] [id number] [place] [address]- 4752 Apr, [facility] [place] [facility] [address] [facility] [id number] [place] [address]- 2375 Apr, [facility] [place] [facility] [address] [facility] [id number] [place] [address]- 2164 Apr, [facility] [place] [facility] [address] [id number] [place] [address]- 7652 Mar, [facility] [place] [facility] [address] [id number] [place] [address]- 1939 Mar, [facility] [place] [facility] [address] [id number] [place] [address]- 7830 Mar, [facility] [place] [facility] [address] [id number] [place] [address]- 2190 Mar, [facility] [place] [facility] [address] [id number] [place] [address]- 9988 Jan, [facility] [place] [facility] [address] [id number] [place] [address]- 8190 Jan, [facility] [place] [facility] [address] [id number] [place] [address]- 3033 Dec, [facility] [place] [facility] [address] [id number] [place] [address]- 4897 Dec, [facility] [place] [facility] [address] [id number] [place] [address]- 1121 Dec, [facility] [place] [facility] [address] [id number] [place] [address]- 4070 Dec, [facility] [place] [facility] [address] [id number] [place] [address]- 4075 Dec, [facility] [place] [facility] [address] [id number] [place] [address]- 7994 Dec, [facility] [place] [facility] [address] [id number] [place] [address]- 1891 Nov, [facility] [place] [facility] [address] [id number] [place] [address]- 0960 Nov, [facility] [place] [facility] [address] [id number] [place] [address]- 5774 Feb, [facility] [place] [facility] [address] [id number] [place] [address]- 0842 Jul, [facility] [address] [place] [address] [id number] [address]- 2546 Jul, [facility] [address], [place] [address]- 2546 Jun, [facility] [address] [place] [address] [id number] [address] 2546 Jun, [facility] [address] [address]- 2546 Apr, [facility] [address]100[place], [place] [address]- 2546 Apr, [facility] [address], [place] [address]- 2546 Apr, [facility] [address], [place] [address] 2546 Mar, [facility] [address] [address] [id number], [place] [address] 2546 Mar, IMMUNIZATIONS No Known Immunizations SOCIAL HISTORY Never Assessed REASON FOR VISIT Sore throat/Fever, symptoms started yesterday with lower back pain-Whit HERNANDEZ PLAN OF CARE Activity Details Follow Up prn Reason: VITAL SIGNS Height 72 in 2017-08-28 Weight 274.8 lbs 2017-08-28 Temperature 98.8 degrees Fahrenheit 2017-08-28 Heart Rate 84 bpm 2017-08-28 Respiratory Rate 20 2017-08-28 BMI 37.27 kg/m2 2017-08-28 Blood pressure systolic 146 mmHg 2017-08-28 Blood pressure diastolic 86 mmHg 2017-08-28 MEDICATIONS Medication Instructions Dosage Frequency Start Date End Date Duration Status Ibuprofen 400 MG Orally Three times a day 1 tablet 8h Active Amoxicillin 500 mg Orally 3 times a day 1 capsule 8h Aug, Aug, 07 days Active Promethazine-Codeine 6.25-10 MG/5ML Orally every 4 hrs 1-2 tsp as needed 4h Jun, Not-Taking RESULTS No Results PROCEDURES No Known procedures INSTRUCTIONS MEDICATIONS ADMINISTERED No Known Medications MEDICAL (GENERAL) HISTORY Type Description Date Medical History Hypertension Medical History IBS Medical History Lactose Intolerant Surgical History Tubes in Ears Surgical History Testicular Hernias x2 Surgical History Appendectomy Surgical History Juan Removal Hospitalization History surgeries Hospitalization History [facility] 04/28/16
--- OUTSIDE RECORDS SUMMARY | 2018-01-12 16:15 | XMS REPORT ---
Author Author DANN FLANAGAN Organization [facility] Address [address] [place] [address] Care Team Providers Care Research Instructor Name Role Phone DANN FLANAGAN Unavailable PROBLEMS Type Condition ICD9-CM Code [id number] Code Onset Dates Condition Status SNOMED Code Problem Irritable bowel syndrome without diarrhea K58.9 Active 28344200 Problem Liver mass R16.0 Active 132889536 Problem Microscopic hematuria R31.29 Active 458380945 Problem Labile hypertension I10 Active 818962580 Problem Intractable migraine without aura and without status migrainosus G43.019 Active 708434204 ALLERGIES No Information ENCOUNTERS Encounter Location Date Diagnosis [place] [address] [address] October, Irritable bowel syndrome without diarrhea K58.9 and Plantar fasciitis of right foot M72.2 [place] [address] [address] Aug, [facility] [address] [place] [id number] [place] [address] Aug, Sore throat J02.9 and Viral pharyngitis J02.9 [place] [address] [place] [id number] [place] [address] Aug, Tonsillitis J03.90 [place] [address] [address] Jun, Influenza B J10.1 ; Fever and chills R50.9 and Liver mass R16.0 [place] [address] [id number] [place] [address] May, Bilateral low back pain without sciatica, unspecified chronicity M54.5 and Labile hypertension I10 [facility] [address] [place] [address] [id number] [place] [address] [id number] 10 Apr, 2017 Dental examination Z01.20 [place] [address] [address] 26 Sep, 2016 Sore throat J02.9 [place] [address] [address] Jun, Intractable migraine without aura and without status migrainosus G43.019 and Essential hypertension I10 [place] [address] [address] 89[address] 14 May, 2016 Acute upper respiratory infection, unspecified J06.9 [place] [address] [address] 8080 11 Apr, 2016 Microscopic hematuria R31.29 [place] [address] [address] 59[address] 08 Apr, 2016 Pelvic pain R10.2 [place] [address] [address]- [address] 04 Apr, [address] [facility] [address] [address] 13 Jan, 2016 Urinary frequency R35.0 [place] [address] 25[address]- 8548 14 Sep, 2015 Liver mass R16.0 [place] [address] 18[address]- 3452 06 Sep, 2015 IV infiltration, initial encounter T80.1XXA [place] [address] 0[address]56- 7[address] 04 Sep, 2015 Liver lesion K76.9 and Back pain M54.9 [facility] [address] [address] 02 Aug, 2015 Testicular pain N50.8 and Epididymal pain N50.8 [place] [address] [place] [address] 14 Sep, 2014 [facility] [place] [facility] [address] [id number] [place] [address] 17[address] 13 Sep, 2014 [facility] [place] [facility] [address] [id number] [place] [address] 3628 17 Nov, 2013 [facility] [place] [facility] [address] [id number] [place] [address] 6686 17 Nov, 2013 [facility] [place] [facility] [address] [id number] [place] [address] 48[address] 13 Nov, 2013 [facility] [place] [facility] [address] [id number] [place] [address] 9779 13 Nov, 2013 [facility] [place] [facility] [address] [id number] [place] [address] 8271 Nov, [facility] [place] [facility] [address] [id number] [place] [address] 0659 Nov, [facility] [place] [facility] [address] [id number] [place] [address] 7[address] Nov, [facility] [place] [facility] [address] [id number] [place] [address] 52[address] Nov, [facility] [place] [facility] [address] [id number] [place] [address] 0768 10 Nov, 2013 [facility] [place] [facility] [address] [id number] [place] [address] 9259 Nov, [facility] [place] [facility] [address] [id number] [place] [address] 2659 Nov, [facility] [place] [facility] [address] [id number] [place] [address]- 4742 Nov, [facility] [place] [facility] [address] [id number] [place] [address]- 2004 06 Nov, 2013 [facility] [place] [facility] [address] [id number] [place] [address]- 3271 Nov, [facility] [place] [facility] [address] [id number] [place] [address]- 0736 Nov, [facility] [place] [facility] [address] [id number] [place] [address] 6320 Sep, [facility] [place] [facility] [address] [id number] [place] [address] 5373 Sep, [facility] [place] [facility] [address] [id number] [place] [address]- 8658 Sep, [facility] [place] [facility] [address] [id number] [place] [address] 5893 Sep, [facility] [place] [facility] [address] [id number] [place] [address]- 0804 Sep, [facility] [place] [facility] [address] [id number] [place] [address]- 4991 May, [facility] [place] [facility] [address] [id number], [place] [address] 8[address] May, [facility] [place] [facility] [address] [id number] [place] [address]- 9203 May, [facility] [place] [facility] [address] [facility] [id number], [place] [address] 53[address] May, [facility] [place] [facility] [address] [id number], [place] [address]- 4808 Apr, [facility] [place] [facility] [address] [id number], [place] [address]- 9681 Apr, [facility] [place] [facility] [address] [id number], [place] [address]- 6108 Apr, [facility] [place] [facility] [address] [id number], [place] [address]- 4400 Apr, [facility] [place] [facility] [address] [id number], [place] [address] 9608 Mar, [facility] [place] [facility] [address] [id number], [place] [address] 0133 Mar, [facility] [address] [id number] [place] [address]- 3787 Mar, [facility] [place] [facility] [address] [id number] [place] [address]- 2693 Mar, [facility] [address] [id number] [place] [address]- 6578 Jan, [facility] [place] [facility] [address] [id number] [place] [address]- 2344 Jan, [facility] [address] [id number] [place] [address]- 7051 Dec, [facility] [place] [facility] [address] [id number] [place] [address]- 7418 Dec, [facility] [address] [id number] [place] [address]- 3193 Dec, [facility] [place] [facility] [address] [id number] [place] [address]- 2127 Dec, [facility] [address] [id number] [place] [address]- 4225 Dec, [facility] [address] [facility] [id number] [place] [address]- 6585 Dec, [facility] [address] [id number] [place] [address]- 3002 Nov, [facility] [place] [facility] [address] [id number], [place] [address] 8138 Nov, [facility] [place] [facility] [address] [id number] [place] [address]- 4064 Feb, [facility] [place] [facility] [address] [id number] [place] [address]- 6501 Jul, [facility] [place] [facility] [address] [facility] [id number], [place] [address]- 6041 Jul, [facility] [place] [facility] [address] [place] [id number] [address]- 1466 Jun, [facility] [address]65[address] [address]- 3213 Jun, [facility] [address]00565[address] [address]- 1800 Apr, [facility] [address]00565[address], [place] [address]- 1834 Apr, [facility] [address]00565[address] [address]- 0723 Apr, [facility] [address]65[address], [place] [address]- 4447 Mar, [facility] [address]65[address], [place] [address]- 5968 Mar, IMMUNIZATIONS No Known Immunizations SOCIAL HISTORY Never Assessed REASON FOR VISIT per lab results PLAN OF CARE VITAL SIGNS MEDICATIONS Medication Instructions Dosage Frequency Start Date End Date Duration Status Keflex 500 mg Orally every 12 hrs 1 capsule 12h Aug, Aug, 10 day(s) Active RESULTS No Results PROCEDURES No Known procedures INSTRUCTIONS MEDICATIONS ADMINISTERED No Known Medications MEDICAL (GENERAL) HISTORY Type Description Date Medical History Hypertension Medical History IBS Medical History Lactose Intolerant Surgical History Tubes in Ears Surgical History Testicular Hernias x2 Surgical History Appendectomy Surgical History Juan Removal Hospitalization History surgeries Hospitalization History ER for lower abdominal pain 04/28/16
--- OUTSIDE RECORDS SUMMARY | 2018-01-12 16:16 | XMS REPORT ---
Author Author MICHAEL SIFUENTES Organization [facility] Address [address] [place] [address] Care Team Providers Care Welding Rod Coater Name Role Phone MICHAEL SIFUENTES Unavailable PROBLEMS Type Condition ICD9-CM Code [id number] Code Onset Dates Condition Status SNOMED Code Problem Irritable bowel syndrome without diarrhea K58.9 Active 68465750 Problem Liver mass R16.0 Active 784311787 Problem Microscopic hematuria R31.29 Active 269211404 Problem Labile hypertension I10 Active 575001573 Problem Intractable migraine without aura and without status migrainosus G43.019 Active 280623057 ALLERGIES Substance Reaction Event Type Date Status Hydrocodone Failed UDS (pos for THC and opiates) Non Drug Allergy Jun, Active Benzodiazepines Failed UDS (pos for THC and opiates) Non Drug Allergy Jun Active ENCOUNTERS Encounter Location Date Diagnosis [place] [id number] [address] October, Irritable bowel syndrome without diarrhea K58.9 and Plantar fasciitis of right foot M72.[address] [address] Aug, [facility] [address] [place] [id number] [place] [address]99 Aug, Sore throat J02.9 and Viral pharyngitis J02.[address] [address]- 77[address] 05 Aug, 2017 Tonsillitis J03.[address] [address]- 2451 Jun, Influenza B J10.1 ; Fever and chills R50.9 and Liver mass R16.0 [facility] [address] [place] [id number] [place] [address] 75602- 6793 May, Bilateral low back pain without sciatica, unspecified chronicity M54.5 and Labile hypertension I10 [facility] [address] [place] [id number] [place] [address] [id number] 10 Apr, 2017 Dental examination Z01.20 [place] [address] [address]- [address] Sep, Sore throat J02.9 [place] [address] [address]- 8531 Jun, Intractable migraine without aura and without status migrainosus G43.019 and Essential hypertension I10 [place] [address] [address]- 7407 14 May, 2016 Acute upper respiratory infection, unspecified J06.9 [place] [address] [address]- 6392 Apr, Microscopic hematuria R31.29 [place] [address] [address]- 4925 08 Apr, 2016 Pelvic pain R10.2 [place] [address] [address]- 8566 04 Apr, 2016 [facility] [address] [place] [id number] [place] [address]608 Jan, Urinary frequency R35.0 [place] [address] 39869- 9802 14 Sep, 2015 Liver mass R16.0 [place] [address] [address]25- 2543 06 Sep, 2015 IV infiltration, initial encounter T80.1XXA [place] [address] 08344- 3786 04 Sep, 2015 Liver lesion K76.9 and Back pain M54.9 [facility] [address] [place] [address] 02 Aug, 2015 Testicular pain N50.8 and Epididymal pain N50.8 [facility] [address], [place] [address]- 4186 14 Sep, 2014 [facility] [address] [facility] [id number], [place] [address]- 4331 13 Sep, 2014 [facility] [address] [facility] [id number] [place] [address] 68468- 4025 17 Nov, 2013 [facility] [address] [facility] [id number], [place] [address]- 2411 17 Nov, 2013 [facility] [address] [place] [address] 24779- 6901 Nov, [facility] [address] [place] [address] 82602- 1786 Nov, [facility] [address] [place] [address] 61082- 5264 Nov, [facility] [address]65[address], [place] [address]- 8792 Nov, [facility] [address], [place] [address]- 8206 Nov, [facility] [address]65[address], [place] [address]- 6212 Nov, [facility] [address]00565[address], [place] [address]- 6813 10 Nov, 2013 [facility] [place] [facility] [address] [facility] [id number], [place] [address]- 6772 Nov, [facility] [place] [facility] [address] [facility] [id number], [place] [address]- 6427 09 Nov, 2013 [facility] [place] [facility] [address] [place] [id number], [place] [address]- 7456 06 Nov, 2013 [facility] [place] [facility] [address]65[address], [place] [address]- 5831 Nov, [facility] [place] [facility] [address] [id number] [place] [address]- 1411 Nov, [facility] [place] [facility] [address] [id number] [place] [address]- 4783 Nov, [facility] [place] [facility] [address] [facility] [id number] [place] [address]- 9039 Sep, [facility] [place] [facility] [address] [id number] [place] [address]- 2223 Sep, [facility] [place] [facility] [address] [id number] [place] [address]- 1691 Sep, [facility] [place] [facility] [address] [id number] [place] [address]- 7574 Sep, [facility] [place] [facility] [address] [facility] [id number] [place] [address]- 4635 Sep, [facility] [place] [facility] [address] [id number] [place] [address]- 3297 May, [facility] [place] [facility] [address] [facility] [id number] [place] [address]- 7807 May, [facility] [place] [facility] [address] [facility] [id number] [place] [address]- 5996 May, [facility] [place] [facility] [address] [facility] [id number], [place] [address]- 5643 May, [facility] [place] [facility] [address] [id number], [place] [address]- 1888 Apr, [facility] [place] [facility] [address] [id number] [place] [address]- 9227 Apr, [facility] [place] [facility] [address] [facility] [id number] [place] [address]- 9241 Apr, [facility] [place] [facility] [address] [facility] [id number] [place] [address]- 6464 Apr, [facility] [place] [facility] [address] [id number] [place] [address]- 9694 Mar, [facility] [place] [facility] [address] [id number] [place] [address]- 9034 Mar, [facility] [place] [facility] [address] [id number] [place] [address]- 8876 Mar, [facility] [place] [facility] [address] [id number] [place] [address]- 4886 Mar, [facility] [place] [facility] [address] [id number] [place] [address]- 4188 Jan, [facility] [place] [facility] [address] [id number] [place] [address]- 8531 Jan, [facility] [place] [facility] [address] [id number] [place] [address]- 8990 Dec, [facility] [place] [facility] [address] [id number] [place] [address]- 6391 Dec, [facility] [place] [facility] [address] [id number] [place] [address]- 3846 Dec, [facility] [place] [facility] [address] [id number] [place] [address]- 5109 Dec, [facility] [place] [facility] [address] [id number] [place] [address]- 7914 Dec, [facility] [place] [facility] [address] [id number] [place] [address]- 1484 Dec, [facility] [place] [facility] [address] [id number] [place] [address]- 2919 Nov, [facility] [place] [facility] [address] [id number] [place] [address]- 4192 Nov, [facility] [place] [facility] [address] [id number] [place] [address]- 2305 Feb, [facility] [place] [facility] [address] [id number] [place] [address]- 0640 Jul, [facility] [address] [facility] [id number], [place] [address]- 2546 Jul, [facility] [address] [place] [id number], [place] [address] 2546 Jun, [facility] [address] [place] [id number], [place] [address] 2546 Jun, [facility] [address], [place] [address]- 2546 Apr, [facility] [address], [place] [address]- 2546 Apr, [facility] [address], [place] [address]- 2546 Apr, [facility] [address], [place] [address]- 9356 Mar, [facility] [address] [place] [address] [id number], [place] [address] 2546 Mar, IMMUNIZATIONS No Known Immunizations SOCIAL HISTORY Never Assessed REASON FOR VISIT Fever since Monday, T max 102----DBennettRN, dry cough, congestion PLAN OF CARE Activity Details Follow Up prn Reason: VITAL SIGNS Height 72 in 2017-07-03 Weight 270 lbs 2017-07-03 Temperature 99.3 degrees Fahrenheit 2017-07-03 Heart Rate 110 bpm 2017-07-03 Respiratory Rate 20 2017-07-03 BMI 36.61 kg/m2 2017-07-03 Blood pressure systolic 140 mmHg 2017-07-03 Blood pressure diastolic 70 mmHg 2017-07-03 MEDICATIONS Medication Instructions Dosage Frequency Start Date End Date Duration Status Ibuprofen 400 MG Orally Three times a day 1 tablet 8h Active Promethazine-Codeine 6.25-10 MG/5ML Orally every 4 hrs 1-2 tsp as needed 4h Jun, Active RESULTS Name Result Date Reference Range INFLUENZA A & B (IN HOUSE) 2017-07-03 INFLUENZA A negative INFLUENZA B positive Control + Lot # [id number] Exp date 05/21/19 PROCEDURES Procedure Date Ordered Result Body Site INFLUENZA ASSAY W/OPTIC Jul 03, 2017 INSTRUCTIONS MEDICATIONS ADMINISTERED No Known Medications MEDICAL (GENERAL) HISTORY Type Description Date Medical History Hypertension Medical History IBS Medical History Lactose Intolerant Surgical History Tubes in Ears Surgical History Testicular Hernias x2 Surgical History Appendectomy Surgical History Juan Removal Hospitalization History surgeries Hospitalization History [facility] 04/28/16
--- OUTSIDE RECORDS SUMMARY | 2018-01-12 16:16 | XMS REPORT ---
Author Author MICHAEL SIFUENTES Organization [facility] Address [address] [place] [address] Care Team Providers Care Healthcare Marketer Name Role Phone MICHAEL SIFUENTES Unavailable PROBLEMS Type Condition ICD9-CM Code QIV55-YD Code Onset Dates Condition Status SNOMED Code Problem Irritable bowel syndrome without diarrhea K58.9 Active 55297446 Problem Liver mass R16.0 Active 609561650 Problem Microscopic hematuria R31.29 Active 235709565 Problem Labile hypertension I10 Active 857581102 Problem Intractable migraine without aura and without status migrainosus G43.019 Active 587615502 ALLERGIES Substance Reaction Event Type Date Status Hydrocodone Failed UDS (pos for THC and opiates) Non Drug Allergy May, Active Benzodiazepines Failed UDS (pos for THC and opiates) Non Drug Allergy May Active ENCOUNTERS Encounter Location Date Diagnosis [place] [id number] [address] October, Irritable bowel syndrome without diarrhea K58.9 and Plantar fasciitis of right foot M72.[address] [address] Aug, [facility] [address] [place] [id number] [place] [address] Aug, Sore throat J02.9 and Viral pharyngitis J02.[address] [address] 05 Aug, 2017 Tonsillitis J03.[address] [address] Jun, Influenza B J10.1 ; Fever and chills R50.9 and Liver mass R16.0 [facility] [address] [place] [id number] [place] [address] May, Bilateral low back pain without sciatica, unspecified chronicity M54.5 and Labile hypertension I10 [facility] [address] [place] [id number] [place] [id number] 10 Apr, 2017 Dental examination Z01.20 [place] [address] [address] Sep, Sore throat J02.9 [place] [address] [address] Jun, Intractable migraine without aura and without status migrainosus G43.019 and Essential hypertension I10 [place] [address] [address] 14 May, 2016 Acute upper respiratory infection, unspecified J06.9 [place] [address] [address] Apr, Microscopic hematuria R31.29 [place] [address] [address] 08 Apr, 2016 Pelvic pain R10.2 [place] [address] [address] 04 Apr, 2016 [facility] [address] [place] [id number] [place] [address] Jan, Urinary frequency R35.0 [place] [address] [address] 14 Sep, 2015 Liver mass R16.0 [place] [address] [address] 06 Sep, 2015 IV infiltration, initial encounter T80.1XXA [place] [address] [address] 04 Sep, 2015 Liver lesion K76.9 and Back pain M54.9 [facility] [address] [place] [address] [id number] [address] 02 Aug, 2015 Testicular pain N50.8 and Epididymal pain N50.8 [facility] [address] [address] 14 Sep, 2014 [facility] [address] [facility] [id number] [address] 13 Sep, 2014 [facility] [address] [facility] [id number] [place] [address] 17 Nov, 2013 [facility] [address] [facility] [id number] [address] 17 Nov, 2013 [facility] [id number] [place] [address] Nov, [facility] [id number] [place] [address] Nov, [facility] [id number] [place] [address] Nov, [facility] [id number] [address] Nov, [facility] [id number] [address] Nov, [facility] [id number] [address] Nov, [facility] [id number] [address] 10 Nov, 2013 [facility] [place] [facility] [address] [facility] [id number] [address] Nov, [facility] [place] [facility] [address] [facility] [id number] [address] 09 Nov, 2013 [facility] [place] [facility] [address] [id number] [address] 06 Nov, 2013 [facility] [place] [facility] [address] [address] Nov, [facility] [place] [facility] [address] [id number] [place] [address] Nov, [facility] [place] [facility] [address] [id number] [place] [address] Nov, [facility] [place] [facility] [address] [facility] [id number] [place] [address] Sep, [facility] [place] [facility] [address] [id number] [place] [address] Sep, [facility] [place] [facility] [address] [id number] [place] [address] Sep, [facility] [place] [facility] [address] [id number] [place] [address] Sep, [facility] [place] [facility] [address] [facility] [id number] [place] [address] Sep, [facility] [place] [facility] [address] [id number] [place] [address] May, [facility] [place] [facility] [address] [facility] [id number] [place] [address] May, [facility] [place] [facility] [address] [facility] [id number] [place] [address] May, [facility] [place] [facility] [address] [facility] [id number] [address] May, [facility] [place] [facility] [address] [id number] [address] Apr, [facility] [place] [facility] [address] [id number] [place] [address] Apr, [facility] [place] [facility] [address] [facility] [id number] [place] [address]- [address] Apr, [facility] [place] [facility] [address] [facility] [id number] [place] [address] Apr, [facility] [place] [facility] [address] [id number] [place] [address] Mar, [facility] [place] [facility] [address] [id number] [place] [address]- [address] Mar, [facility] [place] [facility] [address] [id number] [place] [address]- [address] Mar, [facility] [place] [facility] [address] [id number] [place] [address]- [address] Mar, [facility] [place] [facility] [address] [id number] [place] [address] Jan, [facility] [place] [facility] [address] [id number] [place] [address]- [address] Jan, [facility] [place] [facility] [address] [id number] [place] [address]- [address] Dec, [facility] [place] [facility] [address] [id number] [place] [address]- [address] Dec, [facility] [place] [facility] [address] [id number] [place] [address]- [address] Dec, [facility] [place] [facility] [address] [id number] [place] [address]- [address] Dec, [facility] [place] [facility] [address] [id number] [place] [address] Dec, [facility] [place] [facility] [address] [id number] [place] [address]- [address] Dec, [facility] [place] [facility] [address] [id number] [place] [address]- [address] Nov, [facility] [place] [facility] [address] [id number] [place] [address]- [address] Nov, [facility] [place] [facility] [address] [id number] [place] [address]- [address] Feb, [facility] [place] [facility] [address] [id number] [place] [address]- [address] Jul, [facility] [address] [place] [id number] [address] Jul, [facility] [address] [place] [id number] [address] Jun, [facility] [address] [id number] [address] Jun, [facility] [address] [address] Apr, [facility] [address] [address] Apr, [facility] [address] [address]- [address] Apr, [facility] [address] [address] Mar, [facility] [address] [id number] [address] Mar, IMMUNIZATIONS No Known Immunizations SOCIAL HISTORY Never Assessed REASON FOR VISIT lower back pain with knot, PT feels like the back pain is no longer a problem but does have concerns about blood pressure-Whit HERNANDEZ PLAN OF CARE Activity Details Follow Up 1 Year Reason: VITAL SIGNS Height 72 in 2017-06-23 Weight 270.0 lbs 2017-06-23 Temperature 98.9 degrees Fahrenheit 2017-06-23 Heart Rate 76 bpm 2017-06-23 Respiratory Rate 18 2017-06-23 BMI 36.61 kg/m2 2017-06-23 Blood pressure systolic 138 mmHg 2017-06-23 Blood pressure diastolic 76 mmHg 2017-06-23 MEDICATIONS Medication Instructions Dosage Frequency Start Date End Date Duration Status Ibuprofen 400 MG Orally Three times a day 1 tablet 8h Not-Taking RESULTS No Results PROCEDURES No Known [...]
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
--- NOTE | 2018-01-12 17:51 | ED Back Pain ---
General Chief Complaint: Back Problems Stated Complaint: MASS ON SPINE Nursing Triage Note: PT PRESENTS TO ER WITH COMPLAINT OF MASS ON SPINE. STATES HE SAW HIS PCP ABOUT A MONTH AGO, AND WAS TOLD IT WAS PROBABLY A FATTY TUMOR. INSTRUCTED TO GET MASS RECHECKED IF IT BECAME PAINFUL. PT STATES THAT THE MASS IS NOW PAINFUL. HIS LEGS FEEL "TIGHT AND CRAMPY". Nursing Sepsis Screen: No Definite Risk History of Present Illness Date Seen by Provider: Jan 12, 2018 Time Seen by Provider: 16:49 Initial Comments This 32-year-old gentleman presents to the emergency room with complaints of a lump in his right lower back that has been growing in size and worsening and discomfort over the last 1-2 months. It feels worse when he bends over. He reports headache and feeling a tightness behind his neck and legs which she feels is associated with the lump as well. He takes ibuprofen with some relief. Allergies and Home Medications Allergies Coded Allergies: NKANo Known Allergies (Unverified Allergy, Mild, 10/19/09) Home Medications Albuterol Sulfate 8.5 Gm Hfa.aer.ad, 1-2 PUFF IH Q4H PRN for WHEEZING Prescribed by: TOMASZ MORTON on 02/19/16 1235 Ciprofloxacin HCl 500 Mg Tablet, 500 MG PO BID Prescribed by: LÁZARO JOHNSTON on 04/28/162017 Famotidine 20 Mg Tablet, 20 MG PO BID Prescribed by: VIVI CARTER on 11/14/17 1447 Phenazopyridine HCl 200 Mg Tablet, 1 TAB PO TID PRN for PAIN Prescribed by: LÁZARO JOHNSTON on 04/28/16 2019 Patient Home Medication List Home Medication List Reviewed: Yes Constitutional: no symptoms reported EENTM: see HPI Respiratory: no symptoms reported Cardiovascular: no symptoms reported Gastrointestinal: no symptoms reported Genitourinary: no symptoms reported Musculoskeletal: see HPI Skin: no symptoms reported Psychiatric/Neurological: See HPI Past Iekjirz-Swdqmq-Uorxpg Hx Patient Social History Alcohol Use: Denies Use Recreational Drug Use: No Drug of Choice: marijuana (occasional) Smoking Status: Current Everyday Smoker Type Used: Cigarettes Recent Foreign Travel: No Contact w/Someone Who Travel: No Recent Infectious Disease Expo: No Recent Hopitalizations: No Immunizations Up To Date Tetanus Booster (TDap): Less than 5yrs Seasonal Allergies Seasonal Allergies: No Past Medical History Surgeries: Yes (removal of "birthmarks") Abdominal, Appendectomy Respiratory: No Cardiac: Yes Hypertension Neurological: No Reproductive Disorders: No Gastrointestinal: Yes Abdominal Hernia, Liver Disease/Jaundice Musculoskeletal: No Endocrine: No (FAMILY HX OF) Cancer: No Psychosocial: Yes Anxiety Integumentary: No Blood Disorders: No Adverse Reaction/Blood Tranf: No Family Medical History Patient reports no known family medical history. Heart Disease, DVT/PE, Diabetes, Hypertension Physical Exam Vital Signs Vital Signs - First Documented 01/12/18 16:14 Temp 99.2 Pulse 92 Resp 20 B/P (MAP) 170/98 (122) Pulse Ox 97 O2 Delivery Room Air Capillary Refill : Less Than 3 Seconds Height, Weight, BMI Height: 6'0" Weight: 280lbs. oz. 127.151698ri; 36.94 BMI Method:Stated General Appearance: No Apparent Distress, WD/WN HEENT: PERRL/EOMI, Normal ENT Inspection Neck: Normal Inspection Cardiovascular: Regular Rate, Rhythm, No Edema, No Murmur Respiratory: Lungs Clear, Normal Breath Sounds, No Accessory Muscle Use, No Respiratory Distress Gastrointestinal: Normal Bowel Sounds, Soft, Tenderness (Minimal in the left lower quadrant) Back: Other (2-3 cm somewhat firm mass in the right lumbar paraspinous region) Extremity: Normal Inspection, No Pedal Edema Neurologic/Psychiatric: Alert, Oriented x3, No Motor/Sensory Deficits, Normal Mood/Affect, caustic operator II-XII Norm as Tested, Abnormal Cerebellar Tests Skin: Normal Color, Warm/Dry Progress/Results/Core Measures Results/Orders Vital Signs/I&O 01/12/18 01/12/18 16:14 17:54 Temp 99.2 99.2 Pulse 92 92 Resp 20 20 B/P (MAP) 170/98 (122) 170/98 (122) Pulse Ox 97 97 O2 Delivery Room Air Blood Pressure Mean: 122 Progress Progress Note : Progress Note Options for further workup were discussed. Imaging options were reviewed as well. Patient is concerned about cost efficiency. I offered to do a bedside ultrasound which patient accepted. On ultrasound there appears to be 2-3 cm lesion approximately 2 cm under the skin surface with a similar density in appearance to the surrounding adipose tissue. Lesion could represent a lipoma. I discussed referral to a surgeon to have the lesion removed for evaluation and biopsy. Patient picked up financial aid advisor paperwork to complete. Patient was also advised to follow up with his PCP for evaluation of his blood pressure again. Departure Impression Primary Impression: Mass on back Disposition: 01 HOME, SELF-CARE Condition: Stable Departure-Patient Inst. Decision time for Depature: 17:48 Referrals: [facility] [place] Primary Care Physician AUTUMN ARCHER BRETT D DO JENKINS, XAVIER M MD Patient Instructions: Lipoma Add. Discharge Instructions: You may take ibuprofen up to 6 or milligrams every 6 hours as needed for pain. Add Tylenol (acetaminophen) up to 1000 g every 6 hours as needed for additional pain relief. I suggest that she you seek consultation with a general surgeon as soon as possible to discuss removal of the mass on your back. A list of surgeons has been provided. Please complete the financial aid advisor paperwork with the hospital as soon as possible. Return to care if symptoms are worsening. All discharge instructions reviewed with patient and/or family. Voiced understanding. LÁZARO GREGORIO MD Jan 12, 2018 17:51
[2018-01-12 17:54] VITALS: BP 170/98
== END 2018-01-12 18:01 | disposition home or self-care (01) ==
LOC: ER 16:07
DX: R22.2 Localized swelling, mass and lump, trunk (principal); I10 Essential (primary) hypertension; F41.9 Anxiety disorder, unspecified; F17.210 Nicotine dependence, cigarettes, uncomplicated; Z82.49 Family history of ischemic heart disease and other diseases of the circulatory system; Z79.51 Long term (current) use of inhaled steroids; Z90.89 Acquired absence of other organs; Z87.19 Personal history of other diseases of the digestive system
CPT/HCPCS: 99281

== ENCOUNTER 2018-04-13 20:08 | Emergency (ER) | payer SELFPAY ==
[~2018-04-13] VITALS: Ht 182.9 cm; Wt 117.9 kg
--- OUTSIDE RECORDS SUMMARY | 2018-04-13 20:14 | XMS REPORT ---
Author Author RICHAR BASS Organization [facility] Address [address] [place] [address] Care Team Providers Care No Bake Molder Name Role Phone BASSRICHAR Unavailable PROBLEMS Type Condition ICD9-CM Code KMZ04-YO Code Onset Dates Condition Status SNOMED Code Problem Microscopic hematuria R31.29 Active 043922981 Problem Other chronic pain G89.29 Active 12256123 Problem Cigarette smoker motivated to quit F17.200 Active 40024674 Problem Labile hypertension I10 Active 180268037 Problem Intractable migraine without aura and without status migrainosus G43.019 Active 415731981 Problem Irritable bowel syndrome without diarrhea K58.9 Active 20330210 Problem Liver mass R16.0 Active 282481644 ALLERGIES Substance Reaction Event Type Date Status Hydrocodone Failed UDS (pos for THC and opiates) Non Drug Allergy Jan, Active Benzodiazepines Failed UDS (pos for THC and opiates) Non Drug Allergy Jan Active ENCOUNTERS Encounter Location Date Diagnosis [facility] [id number] [place] [address] 63439- 3471 Jan, [facility] [id number] [place] [address] 54799- 5577 Jan, Low back pain M54.5 ; Other chronic pain G89.29 ; Labile hypertension R09.89 ; Cigarette smoker motivated to quit F17.200 and Calf cramp R25.2 [facility] [id number] [place] [address] 09189- 9227 October, Irritable bowel syndrome without diarrhea K58.9 and Plantar fasciitis of right foot M72.2 [facility] [id number] [place] [address] 23519- 4138 Aug, [facility] [id number] [place] [address] 44260 -4181 15 Aug, 2017 Sore throat J02.9 and Viral pharyngitis J02.9 [facility] [address] 61558- 2874 05 Aug, 2017 Tonsillitis J03.90 [place] [id number] [place] [address] 23308- 3879 08 Jun, 2017 Influenza B J10.1 ; Fever and chills R50.9 and Liver mass R16.0 [place] [id number] [place] [address] 52228- 4548 May, Bilateral low back pain without sciatica, unspecified chronicity M54.5 and Labile hypertension I10 [facility] [address] [id number] 10 Apr, 2017 Dental examination Z01.20 [place] [address] 27339- 4439 26 Sep, 2016 Sore throat J02.9 [facility] [address] 08889- 5271 Jun, Intractable migraine without aura and without status migrainosus G43.019 and Essential hypertension I10 [place] [id number] [place] [address] 05257- 7946 14 May, 2016 Acute upper respiratory infection, unspecified J06.9 [place] [address] 18488- 5916 11 Apr, 2016 Microscopic hematuria R31.29 [place] [address] 99531- 6964 08 Apr, 2016 Pelvic pain R10.2 [place] [address] 71902- 1536 04 Apr, 2016 [facility] [address] 56628 -5237 13 Jan, 2016 Urinary frequency R35.0 [place] [id number] [place] [address] 05353- 2708 14 Sep, 2015 Liver mass R16.0 [facility] [address] 90580- 5130 06 Sep, 2015 IV infiltration, initial encounter T80.1XXA [facility] [id number] [place] [address] 57138- 4961 04 Sep, 2015 Liver lesion K76.9 and Back pain M54.9 [facility] [id number] [place] [address] 76254 -4280 Aug, Testicular pain N50.8 and Epididymal pain N50.8 [facility] [id number] [place] [address] 06071- 6883 14 Sep, 2014 [facility] [id number] [place] [address] 84373- 9530 Sep, [facility] [id number] [place] [address] 72103- 3530 17 Nov, 2013 [facility] [id number] [place] [address] 63353- 5517 17 Nov, 2013 [facility] [id number] [place] [address] 43192- 5199 Nov, [facility] [address] [place] [address] 90640- 7787 Nov, [facility] [id number] [place] [address] 02206- 9332 Nov, [facility] [id number] [place] [address] 25242- 9268 Nov, [facility] [id number] [place] [address] 56483- 2551 Nov, [facility] [address] [place] [address] 97117- 8741 Nov, [facility] [id number] [place] [address] [place] [address]- 1645 Nov, [facility] [place] [facility] [address] [id number] [place] [address]- 1582 Nov, [facility] [place] [facility] [address] [id number] [place] [address]- 1224 Nov, [facility] [place] [facility] [address] [id number] [place] [address]- 0678 Nov, [facility] [place] [facility] [address] [id number] [place] [address]- 4759 Nov, [facility] [place] [facility] [address] [id number] [place] [address]- 6199 Nov, [facility] [place] [facility] [address] [id number] [place] [address]- 2221 Nov, [facility] [place] [facility] [address] [id number] [place] [address]- 8003 Sep, [facility] [place] [facility] [address] [id number] [place] [address]- 0069 Sep, [facility] [place] [facility] [address] [id number] [place] [address]- 0844 Sep, [facility] [place] [facility] [address] [id number] [place] [address]- 3285 Sep, [facility] [place] [facility] [address] [id number] [address]- 0582 Sep, [facility] [place] [facility] [address] [id number] [address]- 2093 May, [facility] [place] [facility] [address] [id number] [place] [address]- 8822 May, [facility] [place] [facility] [address] [id number] [place] [address]- 7071 May, [facility] [place] [facility] [address] [id number] [address]- 8430 May, [facility] [place] [facility] [address] [id number] [place] [address]- 3203 Apr, [facility] [place] [facility] [address] [id number] [place] 1461 Apr, [facility] [place] [facility] [address] [id number] [place] [address]- 9915 Apr, [facility] [place] [facility] [address] [id number] [place] [address]- 7103 Apr, [facility] [place] [facility] [address] [id number] [place] [address]- 7922 Mar, [facility] [place] [facility] [address] [id number] [place] [address]- 4603 Mar, [facility] [place] [facility] [address] [id number] [place] [address]- 4032 Mar, [facility] [place] [facility] [address] [id number] [place] [address]- 6553 Mar, [facility] [place] [facility] [address] [id number] [place] [address]- 2205 Jan, [facility] [place] [facility] [address] [id number] [place] [address]- 0349 Jan, [facility] [place] [facility] [address] [id number] [place] [address]- 0171 Dec, [facility] [place] [facility] [address] [id number] [place] [address]- 1794 Dec, [facility] [place] [facility] [address] [id number] [place] [address]- 3298 Dec, [facility] [place] [facility] [address] [id number] [place] [address]- 1365 Dec, [facility] [place] [facility] [address] [id number] [place] [address]- 7681 Dec, [facility] [place] [facility] [address] [id number] [place] [address]- 5543 Dec, [facility] [address] [id number] [address]- 6576 Nov, [facility] [address] [address]- 2546 Nov, [facility] [address] [address]- 2546 Feb, [facility] [id number] [address]- 2546 Jul, [facility] [address] [address]- 2546 Jul, [facility] [address] [place] [address] 16132- 0156 Jun, [facility] [address] [address]- 8316 Jun, [facility] [address] [address]- 3056 Apr, [facility] [address] [address]- 2376 Apr, [facility] [address] [address] 2546 Apr, [facility] [address] [id number] [address]- 9866 Mar, [facility] [address] [address] 2546 Mar, IMMUNIZATIONS No Known Immunizations SOCIAL HISTORY Never Assessed REASON FOR VISIT Establish Care-DAVID bautista PLAN OF CARE Activity Details Follow Up pending lab Reason: VITAL SIGNS Height 72 in 2018-02-06 Weight 266.8 lbs 2018-02-06 Temperature 97.0 degrees Fahrenheit 2018-02-06 Heart Rate 87 bpm 2018-02-06 Respiratory Rate 20 2018-02-06 Oximetry on room air:97 % 2018-02-06 BMI 36.18 kg/m2 2018-02-06 Blood pressure systolic 128 mmHg 2018-02-06 Blood pressure diastolic 78 mmHg 2018-02-06 MEDICATIONS Medication Instructions Dosage Frequency Start Date End Date Duration Status Ibuprofen 600 MG Orally Three times a day 1 tablet with food or milk as needed 8h Active Wellbutrin SR 150 MG Orally twice a day as directed 12h 14 Jan, 2018 30 days Active RESULTS No Results PROCEDURES Procedure Date Ordered Result Body Site X-RAY EXAM OF LOWER SPINE Feb 06, 2018 COMPLETE CBC W/AUTO DIFF WBC Feb 06, 2018 VENIPUNCT, ROUTINE* Feb 06, 2018 ASSAY THYROID STIM HORMONE Feb 06, 2018 COMPREHEN METABOLIC PANEL Feb 06, 2018 LIPID PANEL Feb 06, 2018 ASSAY OF FREE THYROXINE Feb 06, 2018 INSTRUCTIONS MEDICATIONS ADMINISTERED No Known Medications MEDICAL (GENERAL) HISTORY Type Description Date Medical History Hypertension Medical History IBS Medical History Lactose Intolerant Surgical History Tubes in Ears Surgical History Testicular Hernias x2 Surgical History Appendectomy Surgical History Juan Removal Hospitalization History surgeries Hospitalization History ER for lower abdominal pain 04/28/16 Hospitalization History lipoma 12/2017
--- OUTSIDE RECORDS SUMMARY | 2018-04-13 20:14 | XMS REPORT ---
Author Author MICHAEL SIFUETNES Organization [facility] Address [address] [place] [address] Care Team Providers Care Visual Coordinator Name Role Phone MICHAEL SIFUENTES Unavailable PROBLEMS Type Condition ICD9-CM Code ZVD39-ST Code Onset Dates Condition Status SNOMED Code Problem Microscopic hematuria R31.29 Active 744515720 Problem Other chronic pain G89.29 Active 03747970 Problem Cigarette smoker motivated to quit F17.200 Active 65697634 Problem Labile hypertension I10 Active 555224845 Problem Intractable migraine without aura and without status migrainosus G43.019 Active 674346728 Problem Irritable bowel syndrome without diarrhea K58.9 Active 71541115 Problem Liver mass R16.0 Active 675609715 ALLERGIES Substance Reaction Event Type Date Status Hydrocodone Failed UDS (pos for THC and opiates) Non Drug Allergy October, Active Benzodiazepines Failed UDS (pos for THC and opiates) Non Drug Allergy October Active ENCOUNTERS Encounter Location Date Diagnosis [facility] [id number] [place] [address] 34134- 6358 Jan, [facility] [id number] [place] [address] 67048- 2598 Jan, Low back pain M54.5 ; Other chronic pain G89.29 ; Labile hypertension R09.89 ; Cigarette smoker motivated to quit F17.200 and Calf cramp R25.2 [facility] [id number] [place] [address] 61478- 7459 October, Irritable bowel syndrome without diarrhea K58.9 and Plantar fasciitis of right foot M72.2 [facility] [id number] [place] [address] 23751- 6832 Aug, [facility] [id number] [place] [address] 02967 -0682 15 Aug, 2017 Sore throat J02.9 and Viral pharyngitis J02.9 [facility] [address] 44151- 3732 05 Aug, 2017 Tonsillitis J03.90 [facility] [address] 50200- 8304 08 Jun, 2017 Influenza B J10.1 ; Fever and chills R50.9 and Liver mass R16.0 [place] [address] 18066- 3584 May, Bilateral low back pain without sciatica, unspecified chronicity M54.5 and Labile hypertension I10 [facility] [address] [id number] Apr, 2017 Dental examination Z01.20 [place] [address] 34390- 4930 26 Sep, 2016 Sore throat J02.9 [facility] [address] 49242- 1899 Jun, Intractable migraine without aura and without status migrainosus G43.019 and Essential hypertension I10 [place] [id number] [place] [address] 35604- 9295 14 May, 2016 Acute upper respiratory infection, unspecified J06.9 [place] [address] 65272- 7451 11 Apr, 2016 Microscopic hematuria R31.29 [place] [address] 48941- 1377 08 Apr, 2016 Pelvic pain R10.2 [place] [address] 81199- 8377 04 Apr, 2016 [facility] [id number] [place] [address] 17657 -5787 13 Jan, 2016 Urinary frequency R35.0 [place] [id number] [place] [address] 51807- 9603 14 Sep, 2015 Liver mass R16.0 [facility] [address] 48372- 9367 06 Sep, 2015 IV infiltration, initial encounter T80.1XXA [facility] [id number] [place] [address] 03087- 3881 04 Sep, 2015 Liver lesion K76.9 and Back pain M54.9 [facility] [id number] [place] [address] 45619 -3130 Aug, Testicular pain N50.8 and Epididymal pain N50.8 [facility] [id number] [place] [address] 42401- 6702 14 Sep, 2014 [facility] [id number] [place] [address] 89376- 3118 Sep, [facility] [id number] [place] [address] 38826- 5360 17 Nov, 2013 [facility] [id number] [place] [address] 57203- 3777 17 Nov, 2013 [facility] [id number] [place] [address] 50567- 8187 Nov, [facility] [address] [place] [address] 00045- 6370 Nov, [facility] [id number] [place] [address] 73295- 9002 Nov, [facility] [id number] [place] [address] 74481- 4774 Nov, [facility] [id number] [place] [address] 47104- 1683 Nov, [facility] [id number] [place] [address] 28300- 7059 Nov, [facility] [id number] [place] [address], [place] [address]- 5237 Nov, [facility] [place] [facility] [address] [id number] [place] [address]- 9882 Nov, [facility] [place] [facility] [address] [id number] [place] [address]- 4959 Nov, [facility] [place] [facility] [address] [id number] [place] [address]- 2329 Nov, [facility] [place] [facility] [address] [id number] [place] [address]- 3641 Nov, [facility] [place] [facility] [address] [id number] [place] [address]- 6745 Nov, [facility] [place] [facility] [address] [id number] [place] [address]- 4279 Nov, [facility] [place] [facility] [address] [id number] [place] [address]- 6482 Sep, [facility] [place] [facility] [address] [id number] [place] [address]- 1867 Sep, [facility] [place] [facility] [address] [id number] [place] [address]- 4732 Sep, [facility] [place] [facility] [address] [facility] [id number] [place] [address]- 2185 Sep, [facility] [place] [facility] [address] [id number] [place] [address]- 6997 Sep, [facility] [place] [facility] [address] [id number] [address]- 9902 May, [facility] [place] [facility] [address] [id number] [place] [address]- 1384 May, [facility] [place] [facility] [address] [id number] [place] [address]- 9732 May, [facility] [place] [facility] [address] [id number] [address]- 6160 May, [facility] [place] [facility] [address] [id number] [place] [address]- 0391 Apr, [facility] [place] [facility] [address] [id number] [place] [address]- 0540 Apr, [facility] [place] [facility] [address] [id number] [place] [address]- 9150 Apr, [facility] [place] [facility] [address] [id number] [place] [address]- 0654 Apr, [facility] [place] [facility] [address] [id number] [place] [address]- 7552 Mar, [facility] [place] [facility] [address] [id number] [place] [address]- 6079 Mar, [facility] [place] [facility] [address] [id number] [place] [address]- 9401 Mar, [facility] [place] [facility] [address] [id number] [place] [address]- 3143 Mar, [facility] [place] [facility] [address] [id number] [place] [address]- 0474 Jan, [facility] [place] [facility] [address] [id number] [place] [address]- 7655 Jan, [facility] [place] [facility] [address] [id number] [place] [address]- 8056 Dec, [facility] [place] [facility] [address] [id number] [place] [address]- 2545 Dec, [facility] [place] [facility] [address] [id number] [place] [address]- 3172 Dec, [facility] [place] [facility] [address] [id number] [place] [address]- 1161 Dec, [facility] [place] [facility] [address] [id number] [place] [address]- 8007 Dec, [facility] [place] [facility] [address] [id number] [place] [address]- 0488 Dec, [facility] [id number] [address]- 2546 Nov, [facility] [address] [address]- 2546 Nov, [facility] [address] [id number] [address]- 2546 Feb, [facility] [id number] [place] [address] 44900- 2546 Jul, [facility] [address] [address]- 2546 Jul, [facility] [address] [place] [address] 76857- 2546 Jun, [facility] [address] [address]- 2546 Jun, [facility] [address] [address]- 2546 Apr, [facility] [address] [address]- 2546 Apr, [facility] [address] [address]- 2546 Apr, [facility] [address] [address]- 2546 Mar, [facility] [address] [address]- 2546 Mar, IMMUNIZATIONS No Known Immunizations SOCIAL HISTORY Never Assessed REASON FOR VISIT Swollen glands/Diarrhea/Abdominal pain. ER a few days ago with chest pain and light headed. has been having upset stomach for a week, headache for ever a week, light headed constantly, stomach worse when eats and no appetite, no chest pain since ER. ALso right heel has been hurting a lot Ramos RIVERO PLAN OF CARE Activity Details Follow Up prn Reason: VITAL SIGNS Height 72 in 2017-11-17 Weight 273.5 lbs 2017-11-17 Temperature 98.9 degrees Fahrenheit 2017-11-17 Heart Rate 80 bpm 2017-11-17 Respiratory Rate 20 2017-11-17 BMI 37.09 kg/m2 2017-11-17 Blood pressure systolic 148 mmHg 2017-11-17 Blood pressure diastolic 86 mmHg 2017-11-17 MEDICATIONS Medication Instructions Dosage Frequency Start Date End Date Duration Status Pepcid AC Maximum Strength 20 MG Orally Once a day 1 tablet at bedtime 24h Active Librax 5-2.5 MG Orally Three times a day 1 capsule before meals 8h October, Nov, 14 days Active RESULTS No Results PROCEDURES No Known [...]
--- OUTSIDE RECORDS SUMMARY | 2018-04-13 20:14 | XMS REPORT ---
Author Author RICHAR BASS Organization [facility] Address [address] [place] [address] Care Team Providers Care Athlete Marketing Agent Name Role Phone BASSRICHAR Unavailable PROBLEMS Type Condition ICD9-CM Code USR27-VE Code Onset Dates Condition Status SNOMED Code Problem Microscopic hematuria R31.29 Active 915828541 Problem Other chronic pain G89.29 Active 86842735 Problem Cigarette smoker motivated to quit F17.200 Active 96174085 Problem Labile hypertension I10 Active 508828145 Problem Intractable migraine without aura and without status migrainosus G43.019 Active 491429178 Problem Irritable bowel syndrome without diarrhea K58.9 Active 05745414 Problem Liver mass R16.0 Active 839234064 ALLERGIES No Information ENCOUNTERS Encounter Location Date Diagnosis [facility] [address] [address] Jan, [facility] [address] [address] Jan, Low back pain M54.5 ; Other chronic pain G89.29 ; Labile hypertension R09.89 ; Cigarette smoker motivated to quit F17.200 and Calf cramp R25.2 [facility] [id number] [place] [address] October, Irritable bowel syndrome without diarrhea K58.9 and Plantar fasciitis of right foot M72.2 [facility] [address] [address] Aug, [facility] [address] [address] Aug, Sore throat J02.9 and Viral pharyngitis J02.9 [facility] [address] [place] [address] Aug, Tonsillitis J03.90 [place] [address] [address] 08 Jun, 2017 Influenza B J10.1 ; Fever and chills R50.9 and Liver mass R16.0 [facility] [address] [address] May, Bilateral low back pain without sciatica, unspecified chronicity M54.5 and Labile hypertension I10 [facility] [address] [id number] Apr, 2017 Dental examination Z01.20 [place] [address] [address] 26 Sep, 2016 Sore throat J02.9 [place] [address] [address] Jun, Intractable migraine without aura and without status migrainosus G43.019 and Essential hypertension I10 [place] [address] [address] 14 May, 2016 Acute upper respiratory infection, unspecified J06.9 [place] [address] [address] 11 Apr, 2016 Microscopic hematuria R31.29 [place] [address] [address] 08 Apr, 2016 Pelvic pain R10.2 [place] [address] [address] 04 Apr, 2016 [facility] [address] [address] 13 Jan, 2016 Urinary frequency R35.0 [facility] [address] [address] 14 Sep, 2015 Liver mass R16.0 [place] [address] [place] [address] 06 Sep, 2015 IV infiltration, initial encounter T80.1XXA [facility] [id number] [place] [address] 04 Sep, 2015 Liver lesion K76.9 and Back pain M54.9 [facility] [id number] [place] [address] 02 Aug, 2015 Testicular pain N50.8 and Epididymal pain N50.8 [facility] [id number] [place] [address] 14 Sep, 2014 [facility] [address] [address] Sep, [facility] [id number] [place] [address] 17 Nov, 2013 [facility] [id number] [place] [address]- [address] 17 Nov, 2013 [facility] [id number] [place] [address] Nov, [facility] [id number] [place] [address] Nov, [facility] [id number] [place] [address]- [address] Nov, [facility] [id number] [place] [address] Nov, [facility] [address] [place] [address]- [address] Nov, [facility] [id number] [place] [address]- [address] 11 Nov, 2013 [facility] [id number] [place] [address] 10 Nov, 2013 [facility] [id number] [place] [address]- [address] Nov, [facility] [place] [facility] [address] [id number] [place] [address] Nov, [facility] [place] [facility] [address] [id number] [place] [address] Nov, [facility] [place] [facility] [address] [id number] [place] [address] Nov, [facility] [place] [facility] [address] [id number] [place] [address] Nov, [facility] [place] [facility] [address] [id number] [place] [address] Nov, [facility] [place] [facility] [address] [id number] [place] [address] Sep, [facility] [place] [facility] [address] [id number] [place] [address] Sep, [facility] [place] [facility] [address] [id number] [address] Sep, [facility] [place] [facility] [address] [id number] [place] [address] Sep, [facility] [place] [facility] [address] [id number] [address] Sep, [facility] [place] [facility] [address] [id number] [address] May, [facility] [place] [facility] [address] [id number] [address] May, [facility] [place] [facility] [address] [id number] [address] May, [facility] [place] [facility] [address] [id number] [address] May, [facility] [place] [facility] [address] [id number] [address] Apr, [facility] [place] [facility] [address] [id number] [address] Apr, [facility] [place] [facility] [address] [id number] [place] [address]- [address] Apr, [facility] [place] [facility] [address] [id number] [place] [address] Apr, [facility] [place] [facility] [address] [id number] [place] [address] Mar, [facility] [place] [facility] [address] [id number] [place] [address]- [address] Mar, [facility] [place] [facility] [address] [id number] [place] [address] Mar, [facility] [place] [facility] [address] [id number] [place] [address]- [address] Mar, [facility] [place] [facility] [address] [id number] [place] [address] Jan, [facility] [place] [facility] [address] [id number] [place] [address] Jan, [facility] [place] [facility] [address] [id number] [place] [address]- [address] Dec, [facility] [place] [facility] [address] [facility] [id number] [place] [address]- [address] Dec, [facility] [place] [facility] [address] [id number] [place] [address]- [address] Dec, [facility] [place] [facility] [address] [id number] [place] [address]- [address] Dec, [facility] [place] [facility] [address] [id number] [place] [address]- 17[address] Dec, [facility] [place] [facility] [address] [facility] [id number] [place] [address]- [address] Dec, [facility] [place] [facility] [address] [facility] [id number] [place] [address]- [address] Nov, [facility] [place] [facility] [address] [address] Nov, [facility] [address]65100[place] [address] Feb, [facility] [address]65[address] [address] Jul, [facility] [address] [place] [address] 9[address]- [address] Jul, [facility] [address] [place] [address] Jun, [facility] [address] [place] [address]- [address] Jun, [facility] [address] [place] [address] 250109- 7[address] Apr, [facility] [id number] [place] [address]- [address] Apr, [facility] [address] [address]- [address] Apr, [facility] [address] [address]- [address] Mar, [facility] [address] [id number] [address]- [address] Mar, IMMUNIZATIONS No Known Immunizations SOCIAL HISTORY Never Assessed REASON FOR VISIT x-ray results PLAN OF CARE VITAL SIGNS MEDICATIONS Unknown Medications RESULTS No Results PROCEDURES No Known procedures INSTRUCTIONS MEDICATIONS ADMINISTERED No Known Medications MEDICAL (GENERAL) HISTORY Type Description Date Medical History Hypertension Medical History IBS Medical History Lactose Intolerant Surgical History Tubes in Ears Surgical History Testicular Hernias x2 Surgical History Appendectomy Surgical History Juan Removal Hospitalization History surgeries Hospitalization History [facility] for lower abdominal pain 04/28/16 Hospitalization History lipoma 12/2017
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
--- NOTE | 2018-04-13 20:32 | ED General ---
General Chief Complaint: Head/Cervical Problems Stated Complaint: HEAD PRESSURE/DIFF CONCENTRATING Source of Information: Patient Exam Limitations: No Limitations History of Present Illness Date Seen by Provider: Apr 13, 2018 Time Seen by Provider: 20:30 Initial Comments ER with reports of a one-week history of generalized head pressure and difficulty concentrating. No rhinorrhea or nasal congestion. No earaches. No fevers or chills. He states this is not a pain but more of an annoying pressure. States that he occasionally smokes marijuana but has not done so recently because he already feels high Timing/Duration: 1 Week Severity: Moderate Associated Systoms: No Chest Pain, No Cough, No Diaphoresis, No Fever/Chills, No Nausea/Vomiting Allergies and Home Medications Allergies Coded Allergies: NKANo Known Allergies (Unverified Allergy, Mild, 10/19/09) Home Medications Albuterol Sulfate 8.5 Gm Hfa.aer.ad, 1-2 PUFF IH Q4H PRN for WHEEZING Prescribed by: TOMASZ MORTON on 02/19/16 1235 Ciprofloxacin HCl 500 Mg Tablet, 500 MG PO BID Prescribed by: LÁZARO JOHNSTON on 04/28/162017 Famotidine 20 Mg Tablet, 20 MG PO BID Prescribed by: VIVI CARTER on 11/14/17 144 Phenazopyridine HCl 200 Mg Tablet, 1 TAB PO TID PRN for PAIN Prescribed by: LÁZARO JOHNSTON on 04/28/16 2019 Patient Home Medication List Home Medication List Reviewed: Yes Review of Systems Review of Systems Constitutional: see HPI EENTM: see HPI Respiratory: no symptoms reported Cardiovascular: no symptoms reported Genitourinary: no symptoms reported Musculoskeletal: see HPI Skin: no symptoms reported Psychiatric/Neurological: See HPI Hematologic/Lymphatic: No Symptoms Reported Past Ywlavzb-Cnnylw-Fowlbt Hx Patient Social History Drug of Choice: marijuana (occasional) Type Used: Cigarettes Recent Foreign Travel: No Contact w/Someone Who Travel: No Recent Hopitalizations: No Immunizations Up To Date Tetanus Booster (TDap): Less than 5yrs Seasonal Allergies Seasonal Allergies: No Past Medical History Surgeries: Yes (removal of "birthmarks") Abdominal, Appendectomy Respiratory: No Cardiac: Yes Hypertension Neurological: No Reproductive Disorders: No Gastrointestinal: Yes Abdominal Hernia, Liver Disease/Jaundice Musculoskeletal: No Endocrine: No (FAMILY HX OF) Cancer: No Psychosocial: Yes Anxiety Integumentary: No Blood Disorders: No Adverse Reaction/Blood Tranf: No Family Medical History Patient reports no known family medical history. Heart Disease, DVT/PE, Diabetes, Hypertension Physical Exam Vital Signs Vital Signs - First Documented 04/13/18 20:25 Temp 97.9 Pulse 96 Resp 19 B/P (MAP) 175/115 (135) Capillary Refill : Height, Weight, BMI Height: 6'0" Weight: 280lbs. oz. 127.727228ek; 36.94 BMI Method:Stated General Appearance: No Apparent Distress, WD/WN Eyes: Bilateral Eye Normal Inspection, Bilateral Eye PERRL, Bilateral Eye EOMI HEENT: PERRL/EOMI, TMs Normal, Normal ENT Inspection, TM Abnormal (L) ( slightly erythematous) Neck: Full Range of Motion, Normal Inspection Respiratory: No Accessory Muscle Use, No Respiratory Distress Gastrointestinal: Non Tender, Soft Extremity: Normal Capillary Refill, Normal Inspection Neurologic/Psychiatric: Alert, Oriented x3 Skin: Normal Color, Warm/Dry Progress/Results/Core Measures Suspected Sepsis SIRS Temperature: Pulse: Respiratory Rate: Laboratory Tests 04/13/18 20:35: White Blood Count 11.9H Blood Pressure / Mean: Laboratory Tests 04/13/18 20:35: Creatinine 0.95, Platelet Count 226 Results/Orders Lab Results Laboratory Tests Test 04/13/18 20:33 04/13/18 20:35 Range/Units Urine Color YELLOW Urine Clarity CLEAR Urine pH 7 5-9 Urine Specific [place] 1.015 L 1.016-1.022 Urine Protein NEGATIVE NEGATIVE Urine Glucose (UA) NEGATIVE NEGATIVE Urine Ketones NEGATIVE NEGATIVE Urine Nitrite NEGATIVE NEGATIVE Urine Bilirubin NEGATIVE NEGATIVE Urine Urobilinogen NORMAL NORMAL MG/DL Urine Leukocyte Esterase NEGATIVE NEGATIVE Urine RBC (Auto) 2+ H NEGATIVE Urine RBC 2-5 H /HPF Urine WBC NONE /HPF Urine Crystals PRESENT H /LPF Urine Amorphous Sediment MOD GUI URATES H /LPF Urine Bacteria NONE /HPF Urine Casts NONE /LPF Urine Mucus NEGATIVE /LPF Urine Culture Indicated NO Urine Opiates Screen NEGATIVE NEGATIVE Urine Oxycodone Screen NEGATIVE NEGATIVE Urine Methadone Screen NEGATIVE NEGATIVE Urine Propoxyphene Screen NEGATIVE NEGATIVE Urine Barbiturates Screen NEGATIVE NEGATIVE Ur Tricyclic Antidepressants Screen NEGATIVE NEGATIVE Urine Phencyclidine Screen NEGATIVE NEGATIVE Urine Amphetamines Screen NEGATIVE NEGATIVE Urine Methamphetamines Screen NEGATIVE NEGATIVE Urine Benzodiazepines Screen NEGATIVE NEGATIVE Urine Cocaine Screen NEGATIVE NEGATIVE Urine Cannabinoids Screen POSITIVE H NEGATIVE White Blood Count 11.9 H 4.3-11.0 10^3/uL Red Blood Count 5.79 4.35-5.85 10^6/uL Hemoglobin 17.6 13.3-17.7 G/DL Hematocrit 49 40-54 % Mean Corpuscular Volume 84 80-99 FL Mean Corpuscular Hemoglobin 30 25-34 PG Mean Corpuscular Hemoglobin Concent 36 32-36 G/DL Red Cell Distribution Width 13.2 10.0-14.5 % Platelet Count 226 130-400 10^3/uL Mean Platelet Volume 11.5 H 7.4-10.4 FL Neutrophils (%) (Auto) 62 42-75 % Lymphocytes (%) (Auto) 25 12-44 % Monocytes (%) (Auto) 8 0-12 % Eosinophils (%) (Auto) 5 0-10 % Basophils (%) (Auto) 1 0-10 % Neutrophils # (Auto) 7.4 1.8-7.8 X 10^3 Lymphocytes # (Auto) 3.0 1.0-4.0 X 10^3 Monocytes # (Auto) 0.9 0.0-1.0 X 10^3 Eosinophils # (Auto) 0.6 H 0.0-0.3 10^3/uL Basophils # (Auto) 0.1 0.0-0.1 10^3/uL Sodium Level 141 135-145 MMOL/L Potassium Level 3.9 3.6-5.0 MMOL/L Chloride Level 105 98-107 MMOL/L Carbon Dioxide Level 24 21-32 MMOL/L Anion Gap 12 5-14 MMOL/L Blood Urea Nitrogen 12 7-18 MG/DL Creatinine 0.95 0.60-1.30 MG/DL Estimat Glomerular Filtration Rate > 60 BUN/Creatinine Ratio 13 Glucose Level 94 70-105 MG/DL Calcium Level 10.3 H 8.5-10.1 MG/DL My Orders Orders - TOMASZ MORTON APRN Cbc With Automated Diff (04/13/18 20:25) Basic Metabolic Panel (04/13/18 20:25) Ua Culture If Indicated (04/13/18 20:27) Drug Screen Stat (Urine) (04/13/18 20:27) Ct Head Wo (04/13/18 20:27) Vital Signs/I&O 04/13/18 20:25 Temp 97.9 Pulse 96 Resp 19 B/P (MAP) 175/115 (135) Capillary Refill : Departure Impression Primary Impression: Pressure in head Disposition: HOME, SELF-CARE Condition: Stable Departure-Patient Inst. Decision time for Depature: 21:15 Referrals: [facility] (PCP/Family) Primary Care Physician Patient Instructions: General (DC) Add. Discharge Instructions: 1. Follow-up with Dr. Self on Monday for an eye check. Return to ER for any concerns. All discharge instructions reviewed with patient and/or family. Voiced understanding. TOMASZ MORTON FITNESS AND WELLNESS MANAGER Apr 13, 2018 20:32
[2018-04-13 20:46] LABS: BILIRUBIN,URINE NEGATIVE (NEGATIVE); CLARITY,URINE CLEAR; COLOR,URINE YELLOW; GLUCOSE, URINE (UA) NEGATIVE (NEGATIVE); KETONES,URINE NEGATIVE (NEGATIVE); LEUKOCYTE ESTERASE ,URINE NEGATIVE (NEGATIVE); NITRITE,URINE NEGATIVE (NEGATIVE); PH,URINE 7 (5-9); PROTEIN,URINE NEGATIVE (NEGATIVE); UROBILINOGEN,URINE NORMAL (NORMAL)
[2018-04-13 20:47] LABS: BASOPHILS # (AUTO) 0.1 10^3/uL (0.0-0.1); BASOPHILS % (AUTO) 1 % (0-10); EOSINOPHILS # (AUTO) 0.6 10^3/uL (0.0-0.3); EOSINOPHILS % (AUTO) 5 % (0-10); HEMATOCRIT 49 % (40-54); HEMOGLOBIN 17.6 G/DL (13.3-17.7); LYMPHOCYTES % (AUTO) 25 % (12-44); MEAN CORPUSCULAR HEMOGLOBIN 30 PG (25-34); MEAN CORPUSCULAR HGB CONC 36 G/DL (32-36); MEAN CORPUSCULAR VOLUME 84 FL (80-99); MEAN PLATELET VOLUME 11.5 FL (7.4-10.4); MONOCYTES # (AUTO) 0.9 X 10^3 (0.0-1.0); MONOCYTES % (AUTO) 8 % (0-12); NEUTROPHILS # (AUTO) 7.4 X 10^3 (1.8-7.8); NEUTROPHILS % (AUTO) 62 % (42-75); PLATELET COUNT 226 10^3/uL (130-400); RED BLOOD COUNT 5.79 10^6/uL (4.35-5.85); RED CELL DISTRIBUTION WIDTH 13.2 % (10.0-14.5); WHITE BLOOD COUNT 11.9 10^3/uL (4.3-11.0)
[2018-04-13 20:55] LABS: AMORPHOUS SEDIMENT,UR MOD AMOR URATES /LPF
[2018-04-13 20:59] LABS: AMPHETAMINE SCREEN, URINE NEGATIVE (NEGATIVE); BARBITURATE SCREEN URINE NEGATIVE (NEGATIVE); BENZODIAZEPINES SCREEN URINE NEGATIVE (NEGATIVE); CANNABINOID SCREEN, URINE POSITIVE (NEGATIVE); COCAINE SCREEN URINE NEGATIVE (NEGATIVE); METHADONE STAT NEGATIVE (NEGATIVE); METHAMPHETAMINE SCREEN URINE S NEGATIVE (NEGATIVE); OPIATE SCREEN URINE NEGATIVE (NEGATIVE); OXYCODONE STAT NEGATIVE (NEGATIVE); PROPOXYPHENE STAT NEGATIVE (NEGATIVE); TRICYCLIC ANTIDEPRESSANTS SCRE NEGATIVE (NEGATIVE)
[2018-04-13 21:03] LABS: BUN/CREATININE RATIO 13; CALCIUM 10.3 MG/DL (8.5-10.1); CARBON DIOXIDE 24 MMOL/L (21-32); CHLORIDE 105 MMOL/L (98-107); CREATININE SERUM 0.95 MG/DL (0.60-1.30); GFR ESTIMATED > 60; GLUCOSE 94 MG/DL (70-105); POTASSIUM 3.9 MMOL/L (3.6-5.0); SODIUM 141 MMOL/L (135-145)
--- NOTE | 2018-04-13 21:09 | Diagnostic Imaging Report ---
PROCEDURE: CT head without contrast. TECHNIQUE: Multiple contiguous axial images were obtained through the brain without the use of intravenous contrast. INDICATION: Headache. FINDINGS: The ventricles and sulci are within normal limits. There is no hydrocephalus or cerebral edema. There is no midline shift or mass effect. There is no intracranial mass, hemorrhage, or extra-axial fluid collection. The visualized paranasal sinuses and mastoid air cells are clear. There are no regional areas of decreased attenuation appreciated to suggest an acute CVA. IMPRESSION: No acute intracranial abnormality. Dictated by: Dictated on workstation # [id number]
[2018-04-13 21:15] VITALS: BP 175/115
== END 2018-04-13 21:18 | disposition home or self-care (01) ==
LOC: EDUNIT# 20:08 → ER 20:09
DX: R68.89 Other general symptoms and signs (principal); I10 Essential (primary) hypertension; F41.9 Anxiety disorder, unspecified; Z82.49 Family history of ischemic heart disease and other diseases of the circulatory system; Z87.19 Personal history of other diseases of the digestive system; Z79.51 Long term (current) use of inhaled steroids; Z90.89 Acquired absence of other organs
CPT/HCPCS: 36415; 70450; 80048; 80306; 81000; 85025

== ENCOUNTER 2018-05-15 16:48 | Emergency (ER) | payer OTHER ==
[~2018-05-15] VITALS: Ht 185.4 cm; Wt 122.5 kg
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
[2018-05-15] MEDS: diphenhydrAMINE 25 MG TAB (BENADRYL) PO ONE (17:46)
[2018-05-15] MEDS: ACETAMINOPHEN 500 MG TAB (TYLENOL) PO ONE (17:46)
[2018-05-15] MEDS: KETOROLAC 60 MG/2 ML VIAL IM ONE (17:47)
[2018-05-15] MEDS: PROCHLORPERAZINE 10 MG/2ML INJ (COMPAZINE) IM ONE (17:47)
--- NOTE | 2018-05-15 18:09 | ED EENT ---
History of Present Illness General Chief Complaint: Neurological Problems Stated Complaint: PRESSURE IN HEAD,SENSITIVE TO SOUND,BLURRY VISION Nursing Triage Note: AMB TO ROOM C/O PRESSURE IN HEAD, SENSITIVE TO NOSE AND NO SEX DRIVE FOR 2 MONTHS. HAS BEEN SEEN BY [facility] AND HERE. Source: patient Exam Limitations: no limitations History of Present Illness Date Seen by Provider: May 15, 2018 Time Seen by Provider: 17:22 Initial Comments Patient is a 33-year-old male who presents to the emergency room with complaints of pressure in his head, and sedated to nose, ear pressure, and lack of sex drive for 2 months he has been seen here and at count includes the [facility] for the same issue and was told that he's got fluid behind his ears by count includes the [facility]. He also reports smoking marijuana for pain relief. Timing/Duration: other (2 months) Location: ear (R), ear (L) Prearrival Treatment: no prearrival treatment Allergies and Home Medications Allergies Coded Allergies: NKANo Known Allergies (Unverified Allergy, Mild, 10/19/09) Home Medications No Active Prescriptions or Reported Meds Patient Home Medication List Home Medication List Reviewed: Yes Review of Systems Review of Systems Constitutional: no symptoms reported, see HPI Ears: See HPI, Other Neurological: See HPI, Headache All Other Systems Reviewed Negative Unless Noted: Yes Past Eiindzl-Doaqht-Gowyzi Hx Past Med/Social Hx: Reviewed Nursing Past Med/Soc Hx Patient Social History Alcohol Use: Denies Use Recreational Drug Use: No Drug of Choice: marijuana (occasional) Type Used: Cigarettes Recent Foreign Travel: No Contact w/Someone Who Travel: No Recent Infectious Disease Expo: No Recent Hopitalizations: No Immunizations Up To Date Tetanus Booster (TDap): Less than 5yrs Seasonal Allergies Seasonal Allergies: No Past Medical History Surgeries: Yes (removal of "birthmarks") Abdominal, Appendectomy Respiratory: No Cardiac: Yes Hypertension Neurological: No Reproductive Disorders: No Genitourinary: No Gastrointestinal: Yes Abdominal Hernia, Liver Disease/Jaundice Musculoskeletal: No Endocrine: No (FAMILY HX OF) HEENT: No Cancer: No Psychosocial: Yes Anxiety Integumentary: No Blood Disorders: No Adverse Reaction/Blood Tranf: No Family Medical History Reviewed Nursing Family Hx Patient reports no known family medical history. Heart Disease, DVT/PE, Diabetes, Hypertension Physical Exam Vital Signs Vital Signs - First Documented 05/15/18 05/15/18 17:22 19:00 Temp 100.0 Pulse 107 Resp 16 B/P (MAP) 157/107 (124) Pulse Ox 96 O2 Delivery Room Air Height, Weight, BMI Height: 6'1.00" Weight: 270lbs. oz. 122.206376nj; 36.94 BMI Method:Stated General Appearance: WD/WN, no apparent distress Eyes: bilateral eye normal inspection, bilateral eye PERRL, bilateral eye EOMI Ears: bilateral ear auricle normal, bilateral ear canal normal, bilateral ear TM normal, bilateral ear TM dull, bilateral ear other (effusion) Nose: normal inspection Neck: non-tender, full range of motion, supple, normal inspection Cardiovascular: normal peripheral pulses, regular rate, rhythm, no edema, no gallop, no JVD, no murmur Respiratory: chest non-tender, lungs clear, normal breath sounds, no respiratory distress, no accessory muscle use Neurologic/Psychiatric: alert, normal mood/affect, oriented x 3 Skin: normal color, warm/dry Progress/Results/Core Measures Results/Orders My Orders Orders - HEMANT SKINNER Ketorolac Injection (Toradol Injection) (05/15/18 17:30) Diphenhydramine Tablet (Benadryl Tablet) (05/15/18 17:30) Prochlorperazine Injection (Compazine In (05/15/18 17:30) Acetaminophen Tablet (Tylenol Tablet) (05/15/18 17:30) Medications Given in ED Current Medications Medications Dose Ordered Sig/Regla Route Start Time Stop Time Status Last Admin Dose Admin Acetaminophen 1,000 mg ONCE ONCE PO 05/15/18 17:30 05/15/18 17:31 DC 05/15/18 17:46 1,000 MG Diphenhydramine HCl 50 mg ONCE ONCE PO 05/15/18 17:30 05/15/18 17:31 DC 05/15/18 17:46 50 MG Ketorolac Tromethamine 60 mg ONCE ONCE IM 05/15/18 17:30 05/15/18 17:31 DC 05/15/18 17:47 60 MG Prochlorperazine Edisylate 10 mg ONCE ONCE IM 05/15/18 17:30 05/15/18 17:31 DC 05/15/18 17:47 10 MG Vital Signs/I&O 05/15/18 05/15/18 17:22 19:00 Temp 100.0 100.0 Pulse 107 90 Resp 16 B/P (MAP) 157/107 (124) 141/87 (105) Pulse Ox 96 96 O2 Delivery Room Air Room Air Blood Pressure Mean: 124 Progress Progress Note : Time: 18:50 Progress Note I have seen and evaluated the patient. His pain and headache is gone at this time. He agrees with plan of care. Return precautions were given. Departure Impression Primary Impression: Otitis media with effusion Disposition: HOME, SELF-CARE Condition: Stable/Unchanged Departure-Patient Inst. Decision time for Depature: 18:50 Referrals: [facility] (PCP) Primary Care Physician MICHAEL SIFUENTES MD (Family) Primary Care Physician RICHAR PORTER MD Patient Instructions: Serous Otitis Media (DC) Add. Discharge Instructions: You may use [id number] antihistamine such as Benadryl, decongestants such as Afrin, and you might also try Nasacort [id number] for inflammation relief. You need to follow-up with Dr. Porter speech and hearing director within 1 week for recheck. Tylenol and ibuprofen as needed for pain relief. Return back to the emergency room for any worsening symptoms or concerns as needed. All discharge instructions reviewed with patient and/or family. Voiced understanding. Scripts No Active Prescriptions or Reported Meds HEMANT SKINNER May 15, 2018 18:09
[2018-05-15 19:00] VITALS: BP 141/87
== END 2018-05-15 19:00 | disposition home or self-care (01) ==
LOC: EDUNIT# 16:48 → ER 16:50
DX: H65.93 Unspecified nonsuppurative otitis media, bilateral (principal); I10 Essential (primary) hypertension; F41.9 Anxiety disorder, unspecified; F12.10 Cannabis abuse, uncomplicated; Z90.49 Acquired absence of other specified parts of digestive tract; Z82.49 Family history of ischemic heart disease and other diseases of the circulatory system; Z87.19 Personal history of other diseases of the digestive system
CPT/HCPCS: 99283

== ENCOUNTER 2018-08-12 12:35 | Emergency (ER) | payer OTHER ==
[~2018-08-12] VITALS: Ht 175.3 cm; Wt 113.4 kg
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
[2018-08-12] MEDS ORDERED: ORPHENADRINE 60 MG/2 ML (NORFLEX) AMP IM ONE (14:15)
[2018-08-12 15:03] LABS: BASOPHILS # (AUTO) 0.1 10^3/uL (0.0-0.1); BASOPHILS % (AUTO) 1 % (0-10); EOSINOPHILS # (AUTO) 0.3 10^3/uL (0.0-0.3); EOSINOPHILS % (AUTO) 3 % (0-10); HEMATOCRIT 47 % (40-54); LYMPHOCYTES # (AUTO) 2.1 X 10^3 (1.0-4.0); LYMPHOCYTES % (AUTO) 20 % (12-44); MEAN CORPUSCULAR HEMOGLOBIN 29 PG (25-34); MEAN CORPUSCULAR HGB CONC 34 G/DL (32-36); MEAN CORPUSCULAR VOLUME 85 FL (80-99); MEAN PLATELET VOLUME 11.4 FL (7.4-10.4); MONOCYTES # (AUTO) 0.9 X 10^3 (0.0-1.0); MONOCYTES % (AUTO) 8 % (0-12); NEUTROPHILS # (AUTO) 7.2 X 10^3 (1.8-7.8); NEUTROPHILS % (AUTO) 68 % (42-75); PLATELET COUNT 224 10^3/uL (130-400); RED CELL DISTRIBUTION WIDTH 13.6 % (10.0-14.5); WHITE BLOOD COUNT 10.5 10^3/uL (4.3-11.0)
[2018-08-12 15:23] LABS: ALANINE AMINOTRANSFERASE 49 U/L (0-55); ALBUMIN 4.2 GM/DL (3.2-4.5); ALKALINE PHOSPHATASE 73 U/L (40-136); BILIRUBIN,TOTAL 0.3 MG/DL (0.1-1.0); BUN/CREATININE RATIO 12; CALCIUM 9.5 MG/DL (8.5-10.1); CARBON DIOXIDE 24 MMOL/L (21-32); CHLORIDE 107 MMOL/L (98-107); CREATININE SERUM 0.86 MG/DL (0.60-1.30); GFR ESTIMATED > 60; GLUCOSE 100 MG/DL (70-105); POTASSIUM 3.8 MMOL/L (3.6-5.0); SODIUM 140 MMOL/L (135-145); TOTAL PROTEIN 6.8 GM/DL (6.4-8.2)
--- NOTE | 2018-08-12 15:38 | ED General ---
General Chief Complaint: General Problems/Pain Stated Complaint: RT SHOULDER PAIN,NECK PAIN,WARM LEGS Nursing Triage Note: TO TRIAGE WITH MULTIPLE COMPLAINTS. 1ST - RIGHT SHOULDER PAIN FOR 3 WEEKS ET NO INJURY. 2ND - BURNING IN BILAT LEGS FOR A MONTH ET THINKS IT MIGHT BE BLOOD CLOTS. 3RD - SMELLING WEIRD SMELLS IN HIS NOSE ALONG WITH CONGESTION X1 MONTH. 4TH - RIGHT SIDED NECK PAIN THAT JUST STARTED. Nursing Sepsis Screen: No Definite Risk Source of Information: Patient Exam Limitations: No Limitations History of Present Illness Date Seen by Provider: Aug 12, 2018 Time Seen by Provider: 14:10 Initial Comments 33-year-old male who presents to the emergency room with complaints of right shoulder pain for 3 weeks and neck pain that he woke up with. He also reports of bilateral leg pain and burning for a month and thinks it may be related to a blood clot. He denies any shortness of breath, chest pain, or nausea and vomiting. Allergies and Home Medications Allergies Coded Allergies: NKANo Known Allergies (Unverified Allergy, Mild, 10/19/09) Home Medications No Active Prescriptions or Reported Meds Patient Home Medication List Home Medication List Reviewed: Yes Review of Systems Review of Systems Constitutional: no symptoms reported, see HPI Musculoskeletal: see HPI, joint pain (right shoulder pain), muscle cramps ( bilateral legs), neck pain All Other Systems Reviewed Negative Unless Noted: Yes Past Meqypty-Jmrmoc-Enbmrr Hx Past Med/Social Hx: Reviewed Nursing Past Med/Soc Hx Patient Social History Alcohol Use: Denies Use Recreational Drug Use: Yes Drug of Choice: POT Smoking Status: Current Everyday Smoker Type Used: Cigarettes Recent Foreign Travel: No Contact w/Someone Who Travel: No Recent Infectious Disease Expo: No Recent Hopitalizations: No Immunizations Up To Date Tetanus Booster (TDap): Less than 5yrs Seasonal Allergies Seasonal Allergies: No Past Medical History Surgeries: Yes (removal of "birthmarks") Abdominal, Appendectomy Respiratory: No Cardiac: Yes Hypertension Neurological: No Reproductive Disorders: No Genitourinary: No Gastrointestinal: Yes Abdominal Hernia, Liver Disease/Jaundice Musculoskeletal: No Endocrine: No (FAMILY HX OF) HEENT: No Cancer: No Psychosocial: Yes Anxiety Integumentary: No Blood Disorders: No Adverse Reaction/Blood Tranf: No Family Medical History Reviewed Nursing Family Hx Patient reports no known family medical history. Heart Disease, DVT/PE, Diabetes, Hypertension Physical Exam Vital Signs Vital Signs - First Documented 08/12/18 12:55 Temp 98.7 Pulse 93 Resp 16 B/P (MAP) 169/80 (109) Pulse Ox 96 O2 Delivery Room Air Capillary Refill : Less Than 3 Seconds Height, Weight, BMI Height: 5'9.00" Weight: 250lbs. oz. 113.456950qy; 36.94 BMI Method:Estimated General Appearance: No Apparent Distress, WD/WN HEENT: PERRL/EOMI, TMs Normal, Normal ENT Inspection, Pharynx Normal Neck: Full Range of Motion, Normal Inspection, Non Tender, Supple Respiratory: Chest Non Tender, Lungs Clear, Normal Breath Sounds, No Accessory Muscle Use, No Respiratory Distress Cardiovascular: Regular Rate, Rhythm, No Edema, No Gallop, No JVD, No Murmur, Normal Peripheral Pulses Extremity: Normal Capillary Refill, Normal Inspection, Normal Range of Motion, Non Tender, No Calf Tenderness, No Pedal Edema Neurologic/Psychiatric: Alert, Oriented x3, Normal Mood/Affect Skin: Normal Color, Warm/Dry Progress/Results/Core Measures Suspected Sepsis Recent Fever Within 48 Hours: No Infection Criteria Present: None New/Unexplained Altered Menta: No Sepsis Screen: No Definite Risk SIRS Temperature:98.7 Pulse: 93 Respiratory Rate: 16 Blood Pressure 169 /80 Mean: 109 Results/Orders Lab Results My Orders Orders - HEMANT SKINNER Im/Sub-Q Injection Non-Ab Ed (08/13/18 ) Medications Given in ED Vital Signs/I&O Capillary Refill : Less Than 3 Seconds Blood Pressure Mean: 109 Progress Note : Time: 15:37 Progress Note I have seen and evaluated the patient. I've informed him of his laboratory studies. He is pain-free after medication. He agrees with plan of care, plans for discharge, return precautions were given. Departure Impression Primary Impression: Cervical muscle pain Disposition: 01 HOME, SELF-CARE Condition: Stable/Unchanged Departure-Patient Inst. Decision time for Depature: 15:37 Referrals: [facility] (PCP) Primary Care Physician MICHAEL SIFUENTES MD (Family) Primary Care Physician Patient Instructions: Cervical Muscle Strain (DC) Add. Discharge Instructions: You may continue to use ibuprofen and Tylenol as directed by the bottle for pain relief. Follow-up with your primary care provider within 1 week for recheck. Return back to the emergency room for worsening symptoms or concerns as needed. All discharge instructions reviewed with patient and/or family. Voiced understanding. Scripts No Active Prescriptions or Reported Jabaris HEMANT SKINNER Aug 12, 2018 15:38
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
[2018-08-12 15:56] VITALS: BP 169/80
== END 2018-08-12 15:56 | disposition home or self-care (01) ==
LOC: EDUNIT# 12:35 → ER 12:37
DX: M54.2 Cervicalgia (principal); I10 Essential (primary) hypertension; F41.9 Anxiety disorder, unspecified; F12.10 Cannabis abuse, uncomplicated; F17.210 Nicotine dependence, cigarettes, uncomplicated; Z98.890 Other specified postprocedural states; Z90.49 Acquired absence of other specified parts of digestive tract; Z82.49 Family history of ischemic heart disease and other diseases of the circulatory system; Z87.19 Personal history of other diseases of the digestive system
CPT/HCPCS: 36415; 80053; 85025; 85379; 99284

== ENCOUNTER 2019-01-17 18:30 | Emergency (ER) | payer OTHER ==
[~2019-01-17] VITALS: Ht 182.9 cm; Wt 129.3 kg
[2019-01-17] MEDS ORDERED: NITROGLYCERIN 0.4 MG SL TABS BTL 25'S SL PRN (18:45)
[2019-01-17] MEDS ORDERED: ASPIRIN 81 MG CHEW (CHILDREN'S ASA) PO ONE (18:45)
[2019-01-17 18:46] LABS: BASOPHILS # (AUTO) 0.1 10^3/uL (0.0-0.1); BASOPHILS % (AUTO) 1 % (0-10); EOSINOPHILS # (AUTO) 0.5 10^3/uL (0.0-0.3); EOSINOPHILS % (AUTO) 4 % (0-10); HEMATOCRIT 49 % (40-54); HEMOGLOBIN 16.6 G/DL (13.3-17.7); LYMPHOCYTES # (AUTO) 3.6 X 10^3 (1.0-4.0); LYMPHOCYTES % (AUTO) 28 % (12-44); MEAN CORPUSCULAR HEMOGLOBIN 29 PG (25-34); MEAN CORPUSCULAR HGB CONC 34 G/DL (32-36); MEAN CORPUSCULAR VOLUME 85 FL (80-99); MEAN PLATELET VOLUME 11.4 FL (7.4-10.4); MONOCYTES # (AUTO) 0.9 X 10^3 (0.0-1.0); MONOCYTES % (AUTO) 7 % (0-12); NEUTROPHILS # (AUTO) 7.6 X 10^3 (1.8-7.8); NEUTROPHILS % (AUTO) 60 % (42-75); PLATELET COUNT 246 10^3/uL (130-400); RED CELL DISTRIBUTION WIDTH 13.4 % (10.0-14.5); WHITE BLOOD COUNT 12.7 10^3/uL (4.3-11.0)
[2019-01-17 18:54] LABS: INR 0.9 (0.8-1.4); PROTHROMBIN TIME PATIENT 12.4 SEC (12.2-14.7)
--- NOTE | 2019-01-17 18:57 | ED Chest Pain ---
General Chief Complaint: Chest Pain Stated Complaint: CHEST PAIN,SOA,NECK PAIN Nursing Triage Note: Pt amb to room #4 w/o difficulty. a&ox4. C/o medial chest discomfort and SOB that began @ approx 2200 on 01/16/19. Reports intermittent discomfort is associated with headache and dizziness. Reports hx htn but denies taking BP medication d/t "it makes me feel funny." Nursing Sepsis Screen: No Definite Risk Source: patient History of Present Illness Date Seen by Provider: Jan 17, 2019 Time Seen by Provider: 18:40 Initial Comments PT ARRIVES VIA POV C/O CHEST PAIN AND SHORTNESS OF BREATH SINCE LAST NIGHT--BOTH COME AND GO AND ARE NOT PRESENT NOW CHEST PAIN IS IN MID CHEST ALSO C/O ONGOING RIGHT LATERAL NECK PAIN--ONGOING FOR A LONG TIME, IS NO DIFFERENT TODAY, HAS NOT SOUGHT CARE UNTIL TODAY AND HAS NOT TAKEN ANYTHING FOR PAIN AT ANY TIME ALSO C/O RIGHT LEG PAIN--WHOLE LEG HURTS, CONSTANT CRAMPING IN THIGH AND CALF--HAS BEEN PRESENT FOR OVER 6 MONTHS, AND IS NO DIFFERENT TODAY, HAS NOT SOUGHT CARE UNTIL TODAY AND HAS NOT TAKEN ANYTHING FOR PAIN AT ANY TIME NO SWELLING TO LEG, AND NO INJURY TO LEG. 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 --PT WANTS CHECKED FOR P.E. PCP: [facility], HAS NOT BEEN THERE FOR QUITE SOME TIME Allergies and Home Medications Allergies Uncoded Allergies: IV CONTRAST (Allergy, Intermediate, Rash, 01/17/19) Home Medications No Active Prescriptions or Reported Meds Patient Home Medication List Home Medication List Reviewed: Yes Review of Systems Review of Systems Constitutional: see HPI, dizziness EENTM: No Symptoms Reported; No Blurred Vision Respiratory: See HPI, Shortness of Air Cardiovascular: See HPI, Chest Pain; Denies Edema; Lightheadedness; Denies Palpitations, Denies Syncope Gastrointestinal: No Symptoms Reported; Denies Abdominal Pain, Denies Constipated, Denies Diarrhea, Denies Nausea, Denies Vomiting; Other (ALWAYS HAS 6-7 BM'S EVERY DAY--NORMAL CONSISTENCY) Genitourinary: No Symptoms Reported Musculoskeletal: see HPI Skin: no symptoms reported Psychiatric/Neurological: See HPI, Headache; Denies Numbness, Denies Paresthesia, Denies Seizure, Denies Tingling, Denies Tremors Endocrine: No Symptoms Reported Hematologic/Lymphatic: No Symptoms Reported Past Kkjzzyv-Vyogvz-Undtuj Hx Past Med/Social Hx: Reviewed and Corrections made Patient Social History Alcohol Use: Rarely Uses Recreational Drug Use: Yes (THC ON REGULAR BASIS) Drug of Choice: THC ON REGULAR BASIS Smoking Status: Current Everyday Smoker (2 PPD) Type Used: Cigarettes (2 PPD) Recent Foreign Travel: No Contact w/Someone Who Travel: No Recent Infectious Disease Expo: No Recent Hopitalizations: No Immunizations Up To Date Tetanus Booster (TDap): Less than 5yrs Seasonal Allergies Seasonal Allergies: No Past Medical History Surgeries: Yes (removal of "birthmarks") Abdominal, Appendectomy Respiratory: No Cardiac: Yes Hypertension Neurological: Yes (PLAYED FOOTBALL--SEVERAL CONCUSSIONS) Concussion Reproductive Disorders: No Genitourinary: Yes (BENIGN APPEARING CYSTS ON KIDNEYS, NOTED ON CT) Gastrointestinal: Yes (BENIGN APPEARING LESIONS ON LIVER, NOTED ON CT) Abdominal Hernia, Liver Disease/Jaundice Musculoskeletal: No Endocrine: No HEENT: No Cancer: No Psychosocial: Yes Anxiety Integumentary: No Blood Disorders: No Adverse Reaction/Blood Tranf: No Family Medical History Patient reports no known family medical history. Heart Disease, DVT/PE, Diabetes, Hypertension Physical Exam Vital Signs Vital Signs - First Documented 01/17/19 18:33 Temp 98.3 Pulse 92 Resp 16 B/P (MAP) 175/97 (123) Pulse Ox 96 O2 Delivery Room Air Capillary Refill : Less Than 3 Seconds Height, Weight, BMI Height: 6'0" Weight: 285lbs. oz. 129.397085ro; 36.94 BMI Method:Stated General Appearance: No Apparent Distress, WD/WN, Obese, Other (TEXTING DURING EXAM) HEENT: PERRL/EOMI (GLASSES) Neck: Full Range of Motion, Normal Inspection, Non Tender, Supple Respiratory: Chest Non Tender, Normal Breath Sounds, No Accessory Muscle Use, No Respiratory Distress Cardiovascular: Regular Rate, Rhythm, No Edema, No JVD, No Murmur, Normal Perip heral Pulses Gastrointestinal: Normal Bowel Sounds, No Organomegaly, No Pulsatile Mass, Non Tender, Soft Extremity: Normal Capillary Refill, Normal Inspection, Normal Range of Motion, Non Tender, No Calf Tenderness, No Pedal Edema Neurologic/Psychiatric: Alert, Oriented x3, No Motor/Sensory Deficits, Normal Mood/Affect, pathology technologist II-XII Norm as Tested Skin: Normal Color, Warm/Dry; No Rash Progress/Results/Core Measures Results/Orders Lab Results Laboratory Tests Test 01/17/19 18:35 01/17/19 19:18 Range/Units White Blood Count 12.7 H 4.3-11.0 10^3/uL Red Blood Count 5.74 4.35-5.85 10^6/uL Hemoglobin 16.6 13.3-17.7 G/DL Hematocrit 49 40-54 % Mean Corpuscular Volume 85 80-99 FL Mean Corpuscular Hemoglobin 29 25-34 PG Mean Corpuscular Hemoglobin Concent 34 32-36 G/DL Red Cell Distribution Width 13.4 10.0-14.5 % Platelet Count 246 130-400 10^3/uL Mean Platelet Volume 11.4 H 7.4-10.4 FL Neutrophils (%) (Auto) 60 42-75 % Lymphocytes (%) (Auto) 28 12-44 % Monocytes (%) (Auto) 7 0-12 % Eosinophils (%) (Auto) 4 0-10 % Basophils (%) (Auto) 1 0-10 % Neutrophils # (Auto) 7.6 1.8-7.8 X 10^3 Lymphocytes # (Auto) 3.6 1.0-4.0 X 10^3 Monocytes # (Auto) 0.9 0.0-1.0 X 10^3 Eosinophils # (Auto) 0.5 H 0.0-0.3 10^3/uL Basophils # (Auto) 0.1 0.0-0.1 10^3/uL Prothrombin Time 12.4 12.2-14.7 SEC INR Comment 0.9 0.8-1.4 Activated Partial Thromboplast Time 31 24-35 SEC Sodium Level 139 135-145 MMOL/L Potassium Level 3.9 3.6-5.0 MMOL/L Chloride Level 105 98-107 MMOL/L Carbon Dioxide Level 22 21-32 MMOL/L Anion Gap 12 5-14 MMOL/L Blood Urea Nitrogen 12 7-18 MG/DL Creatinine 0.92 0.60-1.30 MG/DL Estimat Glomerular Filtration Rate > 60 BUN/Creatinine Ratio 13 Glucose Level 114 H 70-105 MG/DL Calcium Level 9.7 8.5-10.1 MG/DL Corrected Calcium 8.5-10.1 MG/DL Magnesium Level 2.0 1.8-2.4 MG/DL Total Bilirubin 0.2 0.1-1.0 MG/DL Aspartate Amino Transf (AST/SGOT) 33 5-34 U/L Alanine Aminotransferase (ALT/SGPT) 77 H 0-55 U/L Alkaline Phosphatase 93 40-136 U/L Myoglobin 20.1 10.0-92.0 NG/ML Troponin I < 0.028 <0.028 NG/ML B-Type Natriuretic Peptide < 10.0 <100.0 PG/ML Total Protein 7.7 6.4-8.2 GM/DL Albumin 4.6 H 3.2-4.5 GM/DL Amylase Level 30 25-125 U/L Lipase 28 8-78 U/L Serum Alcohol < 10 <10 MG/DL Urine Opiates Screen NEGATIVE NEGATIVE Urine Oxycodone Screen NEGATIVE NEGATIVE Urine Methadone Screen NEGATIVE NEGATIVE Urine Propoxyphene Screen NEGATIVE NEGATIVE Urine Barbiturates Screen NEGATIVE NEGATIVE Ur Tricyclic Antidepressants Screen NEGATIVE NEGATIVE Urine Phencyclidine Screen NEGATIVE NEGATIVE Urine Amphetamines Screen NEGATIVE NEGATIVE Urine Methamphetamines Screen NEGATIVE NEGATIVE Urine Benzodiazepines Screen NEGATIVE NEGATIVE Urine Cocaine Screen NEGATIVE NEGATIVE Urine Cannabinoids Screen POSITIVE H NEGATIVE My Orders Orders - CELINELUHA K DO Cbc With Automated Diff (01/17/19 18:41) Magnesium (01/17/19 18:41) Chest 1 View, Ap/Pa Only (01/17/19 18:41) Ekg Tracing (01/17/19 18:41) Cardiac Profile 1 (01/17/19 18:41) Comprehensive Metabolic Panel (01/17/19 18:41) Myoglobin Serum (01/17/19 18:41) Protime With Inr (01/17/19 18:41) Partial Thromboplastin Time (01/17/19 18:41) O2 (01/17/19 18:41) Monitor-Rhythm Ecg Trace Only (01/17/19 18:41) Lipid Panel (01/18/19 06:00) Ed Iv/Invasive Line Start (01/17/19 18:41) Lipase (01/17/19 18:41) Amylase (01/17/19 18:41) BNP (01/17/19 18:41) Nitroglycerin 0.4 Mg Btl 25's (Nitrostat (01/17/19 18:45) Aspirin Chewable Tablet (Baby Aspirin Ch (01/17/19 18:45) Drug Screen Stat (Urine) (01/17/19 18:41) Alcohol (01/17/19 18:35) Ct Angio Chest W (01/17/19 19:07) Iohexol Injection (Omnipaque 350 Mg/Ml 1 (01/17/19 19:15) Received Contrast (Hold Metformin- Contr (01/17/19 19:15) Sodium Chloride Flush (Catheter Flush Sy (01/17/19 19:15) Ns (Ivpb) (Sodium Chloride 0.9% Ivpb Bag (01/17/19 19:15) Diphenhydramine Injection (Benadryl Inje (01/17/19 19:45) Methylprednisolone Sod Succ (Solu-Medrol (01/17/19 19:45) Medications Given in ED Current Medications Medications Dose Ordered Sig/Regla Route Start Time Stop Time Status Last Admin Dose Admin Aspirin 324 mg ONCE ONCE PO 01/17/19 18:45 01/17/19 18:46 DC 01/17/19 18:50 324 MG Diphenhydramine HCl 50 mg ONCE ONCE IVP 01/17/19 19:45 01/17/19 19:46 DC 01/17/19 19:50 50 MG Iohexol 100 ml ONCE ONCE IV 01/17/19 19:15 01/17/19 19:16 DC 01/17/19 20:54 83 ML Methylprednisolone Sodium Succinate 125 mg ONCE ONCE IVP 01/17/19 19:45 01/17/19 19:46 DC 01/17/19 19:49 125 MG Sodium Chloride 10 ml NEEDED PRN IV 7/25/19 19:15 01/17/19 20:54 10 ML Sodium Chloride 100 ml ONCE ONCE IV 01/17/19 19:15 01/17/19 19:16 DC 01/17/19 20:54 80 ML Vital Signs/I&O 01/17/19 01/17/19 18:33 18:33 Temp 98.3 Pulse 92 Resp 16 B/P (MAP) 175/97 (123) Pulse Ox 96 O2 Delivery Room Air Room Air Blood Pressure Mean: 123 Progress Progress Note : Progress Note AFTER INITIALLY STATING MULTIPLE TIMES THAT HE WAS NOT ALLERGIC TO ANYTHING, HE WAS GETTING READY TO GO TO CT, HE "SUDDENLY" REMEMBERED THAT HE HAD "A DELAYED REACTION" TO IV CONTRAST--HAD "HIVES". WILL PRE-TREAT WITH BENADRYL + SOLU-MEDROL. ALLERGY LIST WAS UPDATED TO REFLECT THIS NO PROBLEMS FROM IV CONTRAST PT HAD NO COMPLAINTS OF CHEST PAIN OR SHORTNESS OF BREATH OR ANY OTHER COMPLAINTS AT ANY TIME DURING ER STAY SLEPT FOR REMAINDER OF ER STAY BP 141/82 PRIOR TO DISMISSAL PT ADVISED TO FOLLOW UP WITH HIS PCP FOR FURTHER EVALUATION FOR THIS PROBLEM AND ONGOING ISSUES WITH HTN Initial ECG Impression Date: Jan 17, 2019 Initial ECG Impression Time: 18:35 Initial ECG Rate: 89 Initial ECG Rhythm: Normal Sinus Diagnostic Imaging Comments CXR--NO ACUTE PROCESS CT CHEST ANGIOGRAM--NO P.E. OR ACUTE PROCESS PER RADIOLOGIST REPORTS AT 2137 Reviewed: Reviewed by Me Departure Impression Primary Impression: Chest pain Additional Impression: HTN (hypertension) Disposition: 01 HOME, SELF-CARE Condition: Improved Departure-Patient Inst. Referrals: [facility] ([facility]Family) Primary Care Physician Patient Instructions: Chest Pain (DC), DASH Diet, Controlling Your Blood Pressure Through Lifestyle, High Blood Pressure (DC) Add. Discharge Instructions: HOME, REST FOLLOW UP WITH [facility] IN THE NEXT COUPLE OF DAYS FOR FURTHER CARE RETURN TO ER IF WORSE All discharge instructions reviewed with patient and/or family. Voiced understanding. Scripts No Active Prescriptions or Reported Meds KYLE BERGER DO Jan 17, 2019 18:57
[2019-01-17 19:02] LABS: ALANINE AMINOTRANSFERASE 77 U/L (0-55); ALBUMIN 4.6 GM/DL (3.2-4.5); ALKALINE PHOSPHATASE 93 U/L (40-136); AMYLASE 30 U/L (25-125); BILIRUBIN,TOTAL 0.2 MG/DL (0.1-1.0); BUN/CREATININE RATIO 13; CALCIUM 9.7 MG/DL (8.5-10.1); CARBON DIOXIDE 22 MMOL/L (21-32); CHLORIDE 105 MMOL/L (98-107); CREATININE SERUM 0.92 MG/DL (0.60-1.30); GFR ESTIMATED > 60; GLUCOSE 114 MG/DL (70-105); LIPASE 28 U/L (8-78); POTASSIUM 3.9 MMOL/L (3.6-5.0); SODIUM 139 MMOL/L (135-145); TOTAL PROTEIN 7.7 GM/DL (6.4-8.2)
[2019-01-17] MEDS ORDERED: IOHEXOL 350 MG/ML 100 ML (OMNIPAQUE 350) VIAL IV ONE (19:15)
[2019-01-17] MEDS ORDERED: NS 100 ML (IVPB) BAG IV ONE (19:15)
[2019-01-17] MEDS ORDERED: HOLD METFORMIN - RECEIVED CONTRAST 20 ML VIAL IV SCH (19:15)
[2019-01-17] MEDS ORDERED: CATHETER FLUSH 10 ML SYR IV PRN (19:15)
[2019-01-17 19:39] LABS: AMPHETAMINE SCREEN, URINE NEGATIVE (NEGATIVE); BARBITURATE SCREEN URINE NEGATIVE (NEGATIVE); BENZODIAZEPINES SCREEN URINE NEGATIVE (NEGATIVE); CANNABINOID SCREEN, URINE POSITIVE (NEGATIVE); COCAINE SCREEN URINE NEGATIVE (NEGATIVE); METHADONE STAT NEGATIVE (NEGATIVE); METHAMPHETAMINE SCREEN URINE S NEGATIVE (NEGATIVE); OPIATE SCREEN URINE NEGATIVE (NEGATIVE); OXYCODONE STAT NEGATIVE (NEGATIVE); PROPOXYPHENE STAT NEGATIVE (NEGATIVE); TRICYCLIC ANTIDEPRESSANTS SCRE NEGATIVE (NEGATIVE)
--- NOTE | 2019-01-17 19:41 | Diagnostic Imaging Report ---
EXAMINATION: AP upright portable chest. INDICATION: Chest pain, shortness of breath, headache and dizziness. History of elevated blood pressure. COMPARISON: Multiple priors, most recent performed on 02/19/2016. FINDINGS: The lungs are clear and the pulmonary vasculature is normal. No pneumothorax or large pleural effusion. The heart is normal in size, allowing for AP technique. Mediastinal contours are unchanged. No acute osseous abnormality is appreciated. IMPRESSION: No radiographic evidence of acute chest disease. No significant change from prior. Dictated by: Dictated on workstation # [id number]
[2019-01-17] MEDS ORDERED: diphenhydrAMINE 50 MG/ML INJ (BENADRYL) IVP ONE (19:45)
[2019-01-17] MEDS ORDERED: methylPREDNISolone 125 MG (Solu-MEDROL) VIAL IVP ONE (19:45)
--- OUTSIDE RECORDS SUMMARY | 2019-01-17 20:02 | XMS REPORT ---
Author Author Migration, Doctor Organization [facility] [facility] Address Unknown Phone Unavailable Care Team Providers Care Boss Miner Name Role Phone Migration, Doctor Unavailable Unavailable PROBLEMS Type Condition ICD9-CM Code GBM10-DE Code Onset Dates Condition Status SNOMED Code Problem Microscopic hematuria R31.29 Active 620929737 Problem Intractable migraine without aura and without status migrainosus G43.019 Active 611261531 Problem Other chronic pain G89.29 Active 47636274 Problem Anxiety F41.9 Active 06468274 Problem Labile hypertension I10 Active 126412233 Problem Liver mass R16.0 Active 723138301 Problem Irritable bowel syndrome without diarrhea K58.9 Active 64268831 Problem Cigarette smoker motivated to quit F17.200 Active 36375474 ALLERGIES No Information ENCOUNTERS Encounter Location Date Diagnosis [facility] [id number] [place] [address] Aug, [facility] [address] [address] Aug, [facility] [address] [address] Jul, Neck pain M54.2 ; Other chronic pain G89.29 ; Pain in right shoulder M25.511 ; Anxiety F41.9 ; Family history of early CAD Z82.49 and Lipoma of back D17.1 [facility] [id number] [place] [address] May, Acute nasopharyngitis J00 [facility] [address] [address] Mar, 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 [facility] [id number] [place] [address] Jan, [place] [address] [address] 14 Jan, 2018 Low back pain M54.5 ; Other chronic pain G89.29 ; Labile hypertension R09.89 ; Cigarette smoker motivated to quit F17.200 and Calf cramp R25.2 [place] [address] [address] October, Irritable bowel syndrome without diarrhea K58.9 and Plantar fasciitis of right foot M72.2 [place] [address] [address] 19 Aug, 2017 [facility] [address] [address] 15 Aug, 2017 Sore throat J02.9 and Viral pharyngitis J02.9 [place] [address] [address] Aug, Tonsillitis J03.90 [place] [address] [address] Jun, Influenza B J10.1 ; Fever and chills R50.9 and Liver mass R16.0 [place] [address] [address] May, Bilateral low back pain without sciatica, unspecified chronicity M54.5 and Labile hypertension I10 [facility] [address] [id number] 10 Apr, 2017 Dental examination Z01.20 [place] [address] [address] Sep, Sore throat J02.9 [place] [address] [address] Jun, Intractable migraine without aura and without status migrainosus G43.019 and Essential hypertension I10 [place] [address] [address] 14 May, 2016 Acute upper respiratory infection, unspecified J06.9 [facility] [id number] [place] [address] 11 Apr, 2016 Microscopic hematuria R31.29 [facility] [id number] [place] [address] 08 Apr, 2016 Pelvic pain R10.2 [facility] [address] [address] 04 Apr, 2016 [facility] [address] [address] Jan, Urinary frequency R35.0 [facility] [address] [address] 14 Sep, 2015 Liver mass R16.0 [facility] [address] [address] 06 Sep, 2015 IV infiltration, initial encounter T80.1XXA [facility] [address] [address] 04 Sep, 2015 Liver lesion K76.9 and Back pain M54.9 [facility] [address] [address] 02 Aug, 2015 Testicular pain N50.8 and Epididymal pain N50.8 [facility] [id number] [place] [address] Sep, [facility] [address] [address] Sep, [facility] [address] [address] Nov, [facility] [address] [address] 17 Nov, 2013 [facility] [address] [address] Nov, [facility] [place] [facility] [address] [facility] [id number] [place] [address] 13 Nov, 2013 [facility] [place] [facility] [address] [id number] [place] [address] Nov, [facility] [place] [facility] [address] [id number] [place] [address] Nov, [facility] [place] [facility] [address] [id number] [place] [address] Nov, [facility] [place] [facility] [address] [id number] [place] [address] Nov, [facility] [place] [facility] [address] [id number] [place] [address] Nov, [facility] [place] [facility] [address] [id number] [place] [address] Nov, [facility] [place] [facility] [address] [id number] [place] [address] Nov, [facility] [place] [facility] [address] [id number] [place] [address] Nov, [facility] [place] [facility] [address] [id number] [place] [address] Nov, [facility] [place] [facility] [address] [id number] [place] [address] Nov, [facility] [place] [facility] [address] [id number] [place] [address] Nov, [facility] [place] [facility] [address] [id number] [place] [address] Sep, [facility] [place] [facility] [address] [id number] [place] [address] Sep, [facility] [place] [facility] [address] [id number] [place] [address] Sep, [facility] [place] [facility] [address] [id number] [place] [address] Sep, [facility] [place] [facility] [address] [id number] [place] [address] Sep, [facility] [place] [facility] [address] [id number] [place] [address] May, [facility] [place] [facility] [address] [id number] [place] [address] May, [facility] [place] [facility] [address] [id number] [place] [address] May, [facility] [place] [facility] [address] [id number] [place] [address] May, [facility] [place] [facility] [address] [id number] [place] [address] Apr, [facility] [place] [facility] [address] [id number] [place] [address] Apr, [facility] [place] [facility] [address] [id number] [address] Apr, [facility] [place] [facility] [address] [id number] [place] [address] Apr, [facility] [place] [facility] [address] [id number], [place] [address] Mar, [facility] [place] [facility] [address] [id number], [place] [address] Mar, [facility] [place] [facility] [address] [id number], [place] [address] Mar, [facility] [place] [facility] [address] [id number] [place] [address] Mar, [facility] [place] [facility] [address] [id number], [place] [address] Jan, [facility] [place] [facility] [address] [id number] [place] [address] Jan, [facility] [place] [facility] [address] [id number] [place] [address] Dec, [facility] [place] [facility] [address] [id number] [place] [address] Dec, [facility] [place] [facility] [address] [id number] [place] [address] Dec, [facility] [place] [facility] [address] [id number] [place] [address] Dec, [facility] [place] [facility] [address] [id number] [place] [address] Dec, [facility] [place] [facility] [address] [id number] [place] [address] Dec, [facility] [place] [facility] [address] [id number] [place] [address] Nov, [facility] [place] [facility] [address] [id number] [place] [address] Nov, [facility] [place] [facility] [address] [id number] [place] [address] Feb, [facility] [place] [facility] [address] [id number] [place] [address] Jul, [facility] [place] [facility] [address] [id number] [place] [address] Jul, [facility] [place] [facility] [address] [id number] [place] [address] Jun, [facility] [place] [facility] [address] [id number] [place] [address] Jun, [facility] [place] [facility] [address] [id number] [place] [address] Apr, [facility] [place] [facility] [address] [id number] [place] [address] Apr, [facility] [place] [facility] [address] [id number] [place] [address] Apr, [facility] [address] [facility] [id number] [place] [address] Mar, [facility] [address] [facility] [id number], [place] [address] Mar, IMMUNIZATIONS No Known Immunizations SOCIAL HISTORY Never Assessed REASON FOR VISIT EMR-[facility] PLAN OF CARE VITAL SIGNS MEDICATIONS Unknown [...]
--- OUTSIDE RECORDS SUMMARY | 2019-01-17 20:02 | XMS REPORT ---
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 Name Role Phone Migration, Doctor Unavailable Unavailable PROBLEMS Type Condition ICD9-CM Code SYT60-MF Code Onset Dates Condition Status SNOMED Code Problem Microscopic hematuria R31.29 Active 861951633 Problem Intractable migraine without aura and without status migrainosus G43.019 Active 713378958 Problem Other chronic pain G89.29 Active 68069658 Problem Anxiety F41.9 Active 09334082 Problem Labile hypertension I10 Active 839358349 Problem Liver mass R16.0 Active 098814915 Problem Irritable bowel syndrome without diarrhea K58.9 Active 76141898 Problem Cigarette smoker motivated to quit F17.200 Active 15925739 ALLERGIES No Information ENCOUNTERS Encounter Location Date Diagnosis [facility] [id number] [place] [address] Aug, [facility] [id number] [place] [address] Jul, Neck pain M54.2 ; Other chronic pain G89.29 ; Pain in right shoulder M25.511 ; Anxiety F41.9 ; Family history of early CAD Z82.49 and Lipoma of back D17.1 [facility] [id number] [place] [address] May, Acute nasopharyngitis J00 [facility] [id number] [place] [address] Mar, 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 [facility] [id number] [place] [address] Jan, [facility] [id number] [place] [address] Jan, Low back pain M54.5 ; Other chronic pain G89.29 ; Labile hypertension R09.89 ; Cigarette smoker motivated to quit F17.200 and Calf cramp R25.2 [place] [address] [address] October, Irritable bowel syndrome without diarrhea K58.9 and Plantar fasciitis of right foot M72.2 [place] [address] [address] Aug, [facility] [address] [address] Aug, Sore throat J02.9 and Viral pharyngitis J02.9 [place] [address] [address] Aug, Tonsillitis J03.[address] [address] Jun, Influenza B J10.1 ; Fever and chills R50.9 and Liver mass R16.0 [place] [address] [address] May, Bilateral low back pain without sciatica, unspecified chronicity M54.5 and Labile hypertension I10 [facility] [address] [id number] Apr, Dental examination Z01.20 [place] [address] [address] Sep, Sore throat J02.9 [place] [address] [address] Jun, Intractable migraine without aura and without status migrainosus G43.019 and Essential hypertension I10 [place] [address] [address] May, Acute upper respiratory infection, unspecified J06.9 [place] [address] [address] Apr, Microscopic hematuria R31.29 [facility] [address] [address] 08 Apr, 2016 Pelvic pain R10.2 [facility] [id number] [place] [address] 04 Apr, 2016 [facility] [address] [address] 13 Jan, 2016 Urinary frequency R35.0 [facility] [address] [address] 14 Sep, 2015 Liver mass R16.0 [facility] [address] [address] 06 Sep, 2015 IV infiltration, initial encounter T80.1XXA [facility] [address] [address] 04 Sep, 2015 Liver lesion K76.9 and Back pain M54.9 [facility] [id number] [place] [address] 02 Aug, 2015 Testicular pain N50.8 and Epididymal pain N50.8 [facility] [id number] [place] [address] 14 Sep, 2014 [facility] [id number] [place] [address] Sep, [facility] [address] [address] 17 Nov, 2013 [facility] [address] [address] Nov, [facility] [address] [address] Nov, [facility] [id number] [place] [address] Nov, [facility] [place] [facility] [address] [facility] [id number] [place] [address] Nov, [facility] [place] [facility] [address] [id number] [place] [address] Nov, [facility] [place] [facility] [address] [id number] [place] [address] Nov, [facility] [place] [facility] [address] [id number] [place] [address] Nov, [facility] [place] [facility] [address] [id number] [place] [address] Nov, [facility] [place] [facility] [address] [id number] [place] [address] Nov, [facility] [place] [facility] [address] [id number] [place] [address] Nov, [facility] [place] [facility] [address] [id number] [place] [address] Nov, [facility] [place] [facility] [address] [id number] [place] [address] Nov, [facility] [place] [facility] [address] [id number] [place] [address] Nov, [facility] [place] [facility] [address] [id number] [place] [address] Nov, [facility] [place] [facility] [address] [id number] [place] [address] Sep, [facility] [place] [facility] [address] [id number] [place] [address] Sep, [facility] [place] [facility] [address] [id number] [place] [address] Sep, [facility] [place] [facility] [address] [id number] [place] [address] Sep, [facility] [place] [facility] [address] [id number] [place] [address] Sep, [facility] [address] [id number] [place] [address] May, [facility] [place] [facility] [address] [id number] [place] [address] May, [facility] [place] [facility] [address] [id number] [place] [address] May, [facility] [place] [facility] [address] [id number] [place] [address] May, [facility] [place] [facility] [address] [id number] [place] [address] Apr, [facility] [place] [facility] [address] [id number] [place] [address] Apr, [facility] [place] [facility] [address] [id number] [place] [address] Apr, [facility] [place] [facility] [address] [id number] [place] [address] Apr, [facility] [place] [facility] [address] [id number] [place] [address] Mar, [facility] [place] [facility] [address] [id number] [place] [address] Mar, [facility] [place] [facility] [address] [id number] [place] [address] Mar, [facility] [place] [facility] [address] [id number] [address] Mar, [facility] [place] [facility] [address] [id number] [place] [address] Jan, [facility] [place] [facility] [address] [id number], [place] [address] Jan, [facility] [place] [facility] [address] [id number] [place] [address] Dec, [facility] [place] [facility] [address] [id number] [place] [address] Dec, [facility] [place] [facility] [address] [id number] [place] [address] Dec, [facility] [place] [facility] [address] [id number] [place] [address] Dec, [facility] [place] [facility] [address] [id number] [place] [address] Dec, [facility] [place] [facility] [address] [id number] [place] [address] Dec, [facility] [place] [facility] [address] [id number] [place] [address] Nov, [facility] [place] [facility] [address] [id number] [place] [address] Nov, [facility] [place] [facility] [address] [id number] [place] [address] Feb, [facility] [place] [facility] [address] [id number] [place] [address] Jul, [facility] [place] [facility] [address] [id number] [place] [address] Jul, [facility] [place] [facility] [address] [id number] [place] [address] Jun, [facility] [place] [facility] [address] [id number] [place] [address] Jun, [facility] [place] [facility] [address] [id number] [place] [address] Apr, [facility] [place] [facility] [address] [id number] [place] [address] Apr, [facility] [place] [facility] [address] [id number] [place] [address] Apr, [facility] [place] [facility] [address] [id number] [place] [address] Mar, [facility] [address] [facility] [id number] [place] [address] Mar, IMMUNIZATIONS No Known Immunizations SOCIAL HISTORY Never Assessed REASON FOR VISIT EMR-[facility] PLAN OF CARE VITAL SIGNS MEDICATIONS Unknown [...]
--- OUTSIDE RECORDS SUMMARY | 2019-01-17 20:02 | XMS REPORT ---
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 Person Name Role Phone JUAN R GILLIAM Unavailable PROBLEMS Type Condition ICD9-CM Code SYE58-ND Code Onset Dates Condition Status SNOMED Code Problem Microscopic hematuria R31.29 Active 451142554 Problem Intractable migraine without aura and without status migrainosus G43.019 Active 901005642 Problem Other chronic pain G89.29 Active 38671268 Problem Anxiety F41.9 Active 94335720 Problem Labile hypertension I10 Active 807225613 Problem Liver mass R16.0 Active 849302519 Problem Irritable bowel syndrome without diarrhea K58.9 Active 75633693 Problem Cigarette smoker motivated to quit F17.200 Active 14450531 ALLERGIES No Information ENCOUNTERS Encounter Location Date Diagnosis [facility] [address] [address] Aug, [facility] [address] [address] Jul, Neck pain M54.2 ; Other chronic pain G89.29 ; Pain in right shoulder M25.511 ; Anxiety F41.9 ; Family history of early CAD Z82.49 and Lipoma of back D17.1 [facility] [id number] [place] [address] May, Acute nasopharyngitis J00 [facility] [address] [address] Mar, 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 [facility] [id number] [place] [address] Jan, [facility] [address] [address] Jan, Low back pain M54.5 ; Other chronic pain G89.29 ; Labile hypertension R09.89 ; Cigarette smoker motivated to quit F17.200 and Calf cramp R25.2 [place] [address] [address] October, Irritable bowel syndrome without diarrhea K58.9 and Plantar fasciitis of right foot M72.2 [place] [address] [address] Aug, [facility] [address] [address] Aug, Sore throat J02.9 and Viral pharyngitis J02.9 [place] [address] [address] Aug, Tonsillitis J03.90 [place] [address] [address] Jun, Influenza B J10.1 ; Fever and chills R50.9 and Liver mass R16.0 [place] [address] [address] May, Bilateral low back pain without sciatica, unspecified chronicity M54.5 and Labile hypertension I10 [facility] [address] [id number] Apr, Dental examination Z01.20 [place] [address] [address] Sep, Sore throat J02.9 [place] [address] [address] Jun, Intractable migraine without aura and without status migrainosus G43.019 and Essential hypertension I10 [place] [address] [address] May, Acute upper respiratory infection, unspecified J06.9 [facility] [id number] [place] [address] 11 Apr, 2016 Microscopic hematuria R31.29 [facility] [id number] [place] [address] 08 Apr, 2016 Pelvic pain R10.2 [facility] [address] [address] 04 Apr, 2016 [facility] [address] [address] Jan, Urinary frequency R35.0 [facility] [address] [address] 14 Sep, 2015 Liver mass R16.0 [facility] [address] [address] 06 Sep, 2015 IV infiltration, initial encounter T80.1XXA [facility] [address] [address] 04 Sep, 2015 Liver lesion K76.9 and Back pain M54.9 [facility] [address] [address] 02 Aug, 2015 Testicular pain N50.8 and Epididymal pain N50.8 [facility] [id number] [place] [address] 14 Sep, 2014 [facility] [address] [address] Sep, [facility] [address] [address] Nov, [facility] [address] [address] 17 Nov, 2013 [facility] [id number] [place] [address] 13 Nov, 2013 [facility] [address] [address] 13 Nov, 2013 [facility] [place] [facility] [address] [id number] [place] [address] Nov, [facility] [place] [facility] [address] [id number] [place] [address] Nov, [facility] [place] [facility] [address] [id number] [place] [address] Nov, [facility] [place] [facility] [address] [id number] [place] [address] Nov, [facility] [place] [facility] [address] [id number] [place] [address] Nov, [facility] [place] [facility] [address] [id number] [place] [address] Nov, [facility] [place] [facility] [address] [id number] [place] [address] Nov, [facility] [place] [facility] [address] [id number] [place] [address] Nov, [facility] [place] [facility] [address] [id number] [place] [address] Nov, [facility] [place] [facility] [address] [facility] [id number] [place] [address] Nov, [facility] [place] [facility] [address] [id number] [place] [address] Nov, [facility] [place] [facility] [address] [id number], [place] [address] Sep, [facility] [place] [facility] [address] [id number] [place] [address] Sep, [facility] [place] [facility] [address] [id number] [place] [address] Sep, [facility] [place] [facility] [address] [facility] [id number] [place] [address] Sep, [facility] [place] [facility] [address] [id number] [place] [address] Sep, [facility] [place] [facility] [address] [id number] [place] [address] May, [facility] [place] [facility] [address] [id number] [place] [address] May, [facility] [place] [facility] [address] [id number] [place] [address] May, [facility] [place] [facility] [address] [id number] [place] [address] May, [facility] [place] [facility] [address] [id number] [place] [address] Apr, [facility] [place] [facility] [address] [id number] [place] [address] Apr, [facility] [place] [facility] [address] [id number] [place] [address] Apr, [facility] [place] [facility] [address] [id number] [place] [address] Apr, [facility] [place] [facility] [address] [id number] [place] [address] Mar, [facility] [place] [facility] [address] [id number] [place] [address] Mar, [facility] [place] [facility] [address] [id number] [place] [address] Mar, [facility] [place] [facility] [address] [id number] [place] [address] Mar, [facility] [place] [facility] [address] [id number] [place] [address] Jan, [facility] [place] [facility] [address] [id number] [place] [address] Jan, [facility] [place] [facility] [address] [id number] [place] [address] Dec, [facility] [address] [id number] [place] [address] Dec, [facility] [place] [facility] [address] [id number] [place] [address] Dec, [facility] [place] [facility] [address] [id number] [place] [address] Dec, [facility] [place] [facility] [address] [id number] [place] [address] Dec, [facility] [place] [facility] [address] [id number] [place] [address] Dec, [facility] [place] [facility] [address] [id number] [place] [address] Nov, [facility] [place] [facility] [address] [id number] [place] [address] Nov, [facility] [place] [facility] [address] [id number] [place] [address] Feb, [facility] [place] [facility] [address] [id number] [place] [address] Jul, [facility] [place] [facility] [address] [id number] [place] [address] Jul, [facility] [place] [facility] [address] [id number] [place] [address] Jun, [facility] [place] [facility] [address] [id number], [place] [address] Jun, [facility] [place] [facility] [address] [id number] [place] [address] Apr, [facility] [place] [facility] [address] [id number] [place] [address] Apr, [facility] [place] [facility] [address] [id number] [place] [address] Apr, [facility] [place] [facility] [address] [facility] [id number] [place] [address] Mar, [facility] [address] [facility] [id number] [place] [address] Mar, IMMUNIZATIONS No Known Immunizations SOCIAL HISTORY Never Assessed REASON FOR VISIT Requests return call PLAN OF CARE VITAL SIGNS MEDICATIONS Unknown [...]
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
--- NOTE | 2019-01-17 21:35 | Diagnostic Imaging Report ---
PROCEDURE: CT angiography of the chest with contrast. TECHNIQUE: Multiple contiguous axial images were obtained through the chest after uneventful bolus administration of intravenous contrast. 3D reconstructed CTA MIP acquisitions were also performed. Auto Exposure Controls were utilized during the CT exam to meet ALARA standards for radiation dose reduction. INDICATION: Chest pain, shortness of breath, headache, and dizziness. COMPARISONS: CT angio chest performed on 11/14/2017. FINDINGS: CT ANGIOGRAM: Evaluation for pulmonary embolism is somewhat limited secondary to suboptimal contrast bolus and streak artifact. There is no central PE and there are no findings to suggest emboli in the smaller pulmonary arteries. Normal caliber pulmonary arteries. No acute aortic abnormality seen on this study performed without cardiac gating. TRACHEA AND MAIN BRONCHI: Patent without evidence of tracheal or endobronchial lesion. LUNGS AND PLEURA: Mild dependent subsegmental atelectasis. No consolidation or pulmonary mass. No pleural effusion or pneumothorax. MEDIASTINUM AND PRISCILLA: Visualized thyroid gland is normal. No mediastinal or hilar lymphadenopathy. Esophagus is nondistended. HEART AND VESSELS: Heart is normal in size. No pericardial effusion. Thoracic aorta is nonaneurysmal. DIAPHRAGM AND UPPER ABDOMEN: There is unchanged enhancing lesion with central scar in the right hepatic dome, compatible with focal nodular hyperplasia. There is also no significant change in a mildly hyperenhancing ill-defined ovoid lesion in the central liver. Subcentimeter foci of low attenuation in the visualized kidneys are unchanged and likely reflect cysts. Diaphragm and visualized upper abdomen are otherwise unremarkable. CHEST WALL: Unremarkable. BONES: No acute osseous abnormality. IMPRESSION: Limited examination. No evidence of pulmonary embolism. No significant change from prior. Dictated by: Dictated on workstation # [id number]
[2019-01-17 21:56] VITALS: BP 147/97
== END 2019-01-17 21:58 | disposition home or self-care (01) ==
LOC: EDUNIT# 18:30 → ER 18:32
DX: R07.89 Other chest pain (principal); I10 Essential (primary) hypertension; F41.9 Anxiety disorder, unspecified; F17.210 Nicotine dependence, cigarettes, uncomplicated; F12.10 Cannabis abuse, uncomplicated; Z91.14 Patient's other noncompliance with medication regimen; Z90.49 Acquired absence of other specified parts of digestive tract
CPT/HCPCS: 36415; 71045; 71275; 80053; 80306; 80320; 82150; 83690; 83735; 83874; 83880; 84484; 85025; 85610; 85730; 93005; 93041

== ENCOUNTER 2019-04-30 16:25 | Emergency (ER) | payer OTHER ==
[~2019-04-30] VITALS: Ht 185.4 cm; Wt 122.7 kg
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
[2019-04-30] MEDS ORDERED: CEFD300C3 PO (18:22)
[2019-04-30 18:25] VITALS: BP 143/91
== END 2019-04-30 18:25 | disposition home or self-care (01) ==
LOC: EDUNIT# 16:25 → ER 16:26
DX: J02.9 Acute pharyngitis, unspecified (principal); I10 Essential (primary) hypertension; F41.9 Anxiety disorder, unspecified; Z87.820 Personal history of traumatic brain injury; Z91.041 Radiographic dye allergy status; Z77.22 Contact with and (suspected) exposure to environmental tobacco smoke (acute) (chronic); Z90.49 Acquired absence of other specified parts of digestive tract; Z82.49 Family history of ischemic heart disease and other diseases of the circulatory system
CPT/HCPCS: 99282